=== PATIENT | male | born 1935 | race Caucasian/White ===

== ENCOUNTER 2019-12-24 17:34 | Emergency (ER) | payer MEDICARE, OTHER ==
--- NOTE | 2019-12-24 18:17 | EDM.PDOC ---
ED HPI GENERAL MEDICAL PROBLEM - General Chief Complaint: General Stated Complaint: MEDICAL VIA [facility]TH Time Seen by Provider: 12/24/19 18:01 Source of Information: Reports: Patient, Family, RN Notes Reviewed History Limitations: Reports: No Limitations - History of Present Illness INITIAL COMMENTS - FREE TEXT/NARRATIVE: 84-year-old gentleman presents emergency department today via EMS services. He is an assisted living resident was having dinner started experiencing an event where the room was spinning event lasted about 5 minutes he is now asymptomatic at this time. He is had events similar to this in the past but never lasting this long. He was seated at the time - Related Data Allergies Allergy/AdvReac Type Severity Reaction Status Date / Time heparin Allergy Other Verified 12/24/19 17:44 Home Meds: Home Meds . 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 - Past Surgical History Cardiovascular Surgical History: Reports: Aneurysm, Carotid Stents GI Surgical History: Reports: Bariatric Procedure, Other (See Below) Other GI Surgeries/Procedures: RNY Social & Family History - Tobacco Use Smoking Status *Q: Never Smoker - Caffeine Use Caffeine Use: Reports: Coffee, Soda - Recreational Drug Use Recreational Drug Use: No ED ROS GENERAL - Review of Systems Review Of Systems: See Below Constitutional: Reports: No Symptoms HEENT: Reports: Vertigo Respiratory: Reports: No Symptoms Cardiovascular: Reports: No Symptoms GI/Abdominal: Reports: No Symptoms ED EXAM, GENERAL - Physical Exam Exam: See Below Free Text/Narrative:: Head impulse test: Negative loss of fixation with corrective saccades when head turned to the bilateral Nystagmus: unidirectional, horizontal 0-beating nystagmus Skew deviation: grossly absent Exam Limited By: No Limitations General Appearance: Alert, WD/WN, No Apparent Distress Eye Exam: Bilateral Eye: EOMI, Normal Inspection, PERRL Ears: Normal External Exam, Normal Canal, Hearing Grossly Normal, Normal TMs Nose: Normal Inspection, Normal Mucosa, No Blood Throat/Mouth: Normal Inspection, Normal Lips, Normal Teeth, Normal Gums, Normal Oropharynx, Normal Voice, No Airway Compromise Head: Atraumatic, Normocephalic Neck: Normal Inspection, Supple, Non-Tender, Full Range of Motion Respiratory/Chest: No Respiratory Distress, Lungs Clear, Normal Breath Sounds, No Accessory Muscle Use, Chest Non-Tender Cardiovascular: Regular Rate, Rhythm, No Murmur GI/Abdominal: Soft, Non-Tender Back Exam: Normal Inspection, Full Range of Motion. No: CVA Tenderness (R), CVA Tenderness (L) Extremities: Normal Inspection, Normal Range of Motion, Non-Tender, No Pedal Edema Neurological: Oriented, CN II-XII Intact, Normal Cognition, Normal Gait, Normal Reflexes, No Motor/Sensory Deficits Course - Vital Signs Last Recorded V/S: Last Vital Signs Temp 97.0 F 12/24/19 17:43 Pulse 68 12/24/19 17:43 Resp 16 12/24/19 17:43 BP 115/69 12/24/19 17:43 Pulse Ox 99 12/24/19 17:43 Departure - Departure Time of Disposition: 18:17 Disposition: Home, Self-Care 01 Condition: Fair Clinical Impression: Vertigo - Discharge Information Instructions: Vertigo, [id number] Referrals: PCP,None [Primary Care Provider] - Additional Instructions: Continue with your regular medications, please followup with your primary care provider in 3-5 days if not better, please call return to the emergency department with worsening of symptoms. Sepsis Event Note - Evaluation Sepsis Screening Result: No Definite Risk - Focused Exam Vital Signs: Vital Signs Temp Pulse Resp BP Pulse Ox 12/24/19 17:43 97.0 F 68 16 115/69 99 12/24/19 17:34 97.0 F 68 16 11569 99 Date Exam was Performed: 12/24/19 Time Exam was Performed: 18:14 - Assessment/Plan Plan: Assessment Acuity = acute Site and laterality = vertigo Etiology = unknown Manifestations = none all symptoms resolved Location of injury = Home Lab values = none Plan Elected to do watchful waiting at this time, follow-up primary care 3 to 5 days if not better This note was dictated using [employer] voice recognition software please call with any questions on syntax or grammar.
== END 2019-12-24 18:23 | disposition home or self-care (01) ==
LOC: JP.ED 17:34
DX: R42 Dizziness and giddiness (principal); I10 Essential (primary) hypertension; K21.9 Gastro-esophageal reflux disease without esophagitis; Z88.5 Allergy status to narcotic agent; Z79.899 Other long term (current) drug therapy
CPT/HCPCS: 99284

== ENCOUNTER 2020-05-08 02:08 | Inpatient (IN) | payer MEDICARE ==
[2020-05-08] MEDS ORDERED: Acetaminophen 325 MG Tab PO ONE (02:24)
[2020-05-08] MEDS ORDERED: Ondansetron 4 MG/2 ML SDV IVPUSH ONE (02:24)
--- NOTE | 2020-05-08 02:58 | EDM.PDOC ---
ED HPI GENERAL MEDICAL PROBLEM - General Chief Complaint: Fever Stated Complaint: MEDICAL VIA NORTH Time Seen by Provider: 05/08/20 02:47 Source of Information: Reports: Patient, RN Notes Reviewed History Limitations: Reports: No Limitations - History of Present Illness INITIAL COMMENTS - FREE TEXT/NARRATIVE: 84-year-old gentleman presents emergency department today complaint of nausea vomiting diarrhea fever he has been ill for about 24 hours he is a resident in [facility] tested for COVID last week which was negative tested for COVID yesterday he does not know the results. He denies any other symptoms shortness of breath chest pain abdominal pain - Related Data Allergies Allergy/AdvReac Type Severity Reaction Status Date / Time heparin Allergy Other Verified 05/08/20 02:16 Home Meds: Home Meds Acyclovir 1 tab PO DAILY 05/08/20 [History] Apixaban [Eliquis] 1 tab PO BID 05/08/20 [History] Metoprolol Tartrate [Lopressor] 1 tab PO BID 05/08/20 [History] amLODIPine Besylate [Amlodipine Besylate] 1 tab PO DAILY 05/08/20 [History] atorvaSTATin [Lipitor] 1 tab PO DAILY 05/08/20 [History] Past Medical History HEENT History: Reports: Impaired Vision, Macular Degeneration Cardiovascular History: Reports: Afib, Aneurysm, Hypertension Other Cardiovascular History: Arotic aneurysm rupture Gastrointestinal History: Reports: GERD, Helicobacter Pylori Other Gastrointestinal History: Pancreatitis Oncologic (Cancer) History: Reports: Other (See Below) Other Oncologic History: 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 - Infectious Disease History Infectious Disease History: Reports: Chicken Pox, Measles, Mumps - Past Surgical History HEENT Surgical History: Reports: Adenoidectomy, Cataract Surgery, Tonsillectomy Cardiovascular Surgical History: Reports: Aneurysm, Carotid Stents GI Surgical History: Reports: Bariatric Procedure, Other (See Below) Other GI Surgeries/Procedures: RNY Social & Family History - Family History Family Medical History: Noncontributory - Tobacco Use Smoking Status *Q: Never Smoker - Caffeine Use Caffeine Use: Reports: None - Recreational Drug Use Recreational Drug Use: No ED ROS GENERAL - Review of Systems Review Of Systems: See Below Constitutional: Reports: Fever, Chills, Weakness HEENT: Reports: No Symptoms Respiratory: Reports: No Symptoms Cardiovascular: Reports: No Symptoms GI/Abdominal: Reports: Diarrhea, Nausea, Vomiting. Denies: Abdominal Pain : Reports: No Symptoms Musculoskeletal: Reports: No Symptoms Skin: Reports: No Symptoms Neurological: Reports: No Symptoms ED EXAM, SEPSIS - Physical Exam Exam: See Below Exam Limited By: No Limitations General Appearance: Alert, WD/WN, No Apparent Distress Ears: Normal External Exam, Normal Canal, Hearing Grossly Normal, Normal TMs Nose: Normal Inspection, Normal Mucosa, No Blood Throat/Mouth: Normal Inspection, Normal Lips, Normal Teeth, Normal Gums, Normal Oropharynx, Normal Voice, No Airway Compromise Head: Atraumatic, Normocephalic Neck: Normal Inspection Respiratory/Chest: No Respiratory Distress, Lungs Clear, Normal Breath Sounds, No Accessory Muscle Use, Chest Non-Tender Cardiovascular: No Murmur, Tachycardia GI/Abdominal Exam: Soft, Non-Tender Back: No: CVA Tenderness (R), CVA Tenderness (L) Extremities: No Pedal Edema Skin: Warm, Dry Course - Vital Signs Last Recorded V/S: Last Vital Signs Temp 101.7 F H 05/08/20 04:50 Pulse 116 H 05/08/20 04:50 Resp 29 H 05/08/20 04:50 BP 102/60 05/08/20 04:50 Pulse Ox 94 L 05/08/20 04:50 - Orders/Labs/Meds Orders: Active Orders 24 hr Category Date Time Status Chest 1V Frontal [CR] Stat Exams 05/08/20 02:53 Taken CULTURE BLOOD [BC] Urgent Lab 05/08/20 02:45 Received CULTURE BLOOD [BC] Urgent Lab 05/08/20 03:00 Received CULTURE URINE [RM] Urgent Lab 05/08/20 04:47 Ordered REFLEX LACTIC ACID YES OR NO [CHEM] Routine Lab 05/08/20 03:36 Received Lactated Ringers [Ringers, Lactated] 1,000 ml Med 05/08/20 03:00 Active IV ASDIRECTED cefTRIAXone [Rocephin] 2 gm Med 05/08/20 04:47 Ordered Sodium Chloride 0.9% [Normal Saline] 50 ml IV ONETIME Blood Culture x2 Reflex Set [OM.PC] Urgent Oth 05/08/20 02:53 Ordered Severe Sepsis Onset Time [OM.PC] Stat Oth 05/08/20 02:53 Ordered Medication Orders Lactated Ringer's (Ringers, Lactated) 1,000 mls @ 999 mls/hr IV ASDIRECTED ANDREA Last Admin: 05/08/20 02:59 Dose: 999 mls/hr Ceftriaxone Sodium 2 gm/ (Sodium Chloride) 50 mls @ 100 mls/hr IV ONETIME ONE Stop: 05/08/20 05:16 Labs: Laboratory Tests 05/08/20 05/08/20 05/08/20 Range/Units 02:45 02:45 02:45 WBC 6.7 (4.5-11.0) K/uL RBC 4.10 L (4.30-5.90) M/uL Hgb 12.3 (12.0-15.0) g/dL Hct 39.7 L (40.0-54.0) % MCV 97 (80-98) fL MCH 30 (27-31) pg MCHC 31 L (32-36) % Plt Count 114 L (150-400) K/uL Add Manual Diff Yes Neutrophils % (Manual) 70 H (36-66) % Band Neutrophils % 23 H (5-11) % Lymphocytes % (Manual) 6 L (24-44) % Monocytes % (Manual) 1 L (2-6) % Sodium 142 (140-148) mmol/L Potassium 4.1 (3.6-5.2) mmol/L Chloride 107 (100-108) mmol/L Carbon Dioxide 13 L (21-32) mmol/L Anion Gap 26.1 H (5.0-14.0) mmol/L BUN 40 H (7-18) mg/dL Creatinine 2.6 H (0.8-1.3) mg/dL Est Cr Clr Drug Dosing 22.23 mL/min Estimated GFR (MDRD) 24 L (>60) Glucose 128 H (74-106) mg/dL Lactic Acid 6.1 H (0.4-2.0) mmol/L Calcium 9.0 (8.5-10.1) mg/dL Total Bilirubin 1.7 H (0.2-1.0) mg/dL AST 61 H (15-37) U/L ALT 62 (12-78) U/L Alkaline Phosphatase 226 H (46-116) U/L Troponin I 0.026 (0.000-0.056) ng/mL C-Reactive Protein 4.21 H (0.0-0.3) mg/dL Total Protein 6.3 L (6.4-8.2) g/dL Albumin 3.4 (3.4-5.0) g/dL Globulin 2.9 (2.3-3.5) g/dL Albumin/Globulin Ratio 1.2 (1.2-2.2) Lipase 85 (73-393) U/L Procalcitonin ng/mL Urine Color (YELLOW) Urine Appearance (CLEAR) Urine pH (5.0-8.0) Ur Specific [place] (1.008-1.030) Urine Protein (NEGATIVE) mg/dL Urine Glucose (UA) (NEGATIVE) mg/dL Urine Ketones (NEGATIVE) mg/dL Urine Occult Blood (NEGATIVE) Urine Nitrite (NEGATIVE) Urine Bilirubin (NEGATIVE) Urine Urobilinogen (0.2-1.0) EU/dL Ur Leukocyte Esterase (NEGATIVE) Urine RBC (0-5) Urine WBC (0-5) Ur Epithelial Cells Amorphous Sediment Urine Bacteria Urine Mucus 05/08/20 05/08/20 Range/Units 02:45 03:56 WBC (4.5-11.0) K/uL RBC (4.30-5.90) M/uL Hgb (12.0-15.0) g/dL Hct (40.0-54.0) % MCV (80-98) fL MCH (27-31) pg MCHC (32-36) % Plt Count (150-400) K/uL Add Manual Diff Neutrophils % (Manual) (36-66) % Band Neutrophils % (5-11) % Lymphocytes % (Manual) (24-44) % Monocytes % (Manual) (2-6) % Sodium (140-148) mmol/L Potassium (3.6-5.2) mmol/L Chloride (100-108) mmol/L Carbon Dioxide (21-32) mmol/L Anion Gap (5.0-14.0) mmol/L BUN (7-18) mg/dL Creatinine (0.8-1.3) mg/dL Est Cr Clr Drug Dosing mL/min Estimated GFR (MDRD) (>60) Glucose (74-106) mg/dL Lactic Acid (0.4-2.0) mmol/L Calcium (8.5-10.1) mg/dL Total Bilirubin (0.2-1.0) mg/dL AST (15-37) U/L ALT (12-78) U/L Alkaline Phosphatase (46-116) U/L Troponin I (0.000-0.056) ng/mL C-Reactive Protein (0.0-0.3) mg/dL Total Protein (6.4-8.2) g/dL Albumin (3.4-5.0) g/dL Globulin (2.3-3.5) g/dL Albumin/Globulin Ratio (1.2-2.2) Lipase (73-393) U/L Procalcitonin 35.63 H* ng/mL Urine Color Red A (YELLOW) Urine Appearance Cloudy A (CLEAR) Urine pH 5.0 (5.0-8.0) Ur Specific [place] 1.015 (1.008-1.030) Urine Protein >=300 H (NEGATIVE) mg/dL Urine Glucose (UA) Negative (NEGATIVE) mg/dL Urine Ketones Trace H (NEGATIVE) mg/dL Urine Occult Blood Large H (NEGATIVE) Urine Nitrite Positive H (NEGATIVE) Urine Bilirubin Moderate H (NEGATIVE) Urine Urobilinogen 1.0 (0.2-1.0) EU/dL Ur Leukocyte Esterase Large H (NEGATIVE) Urine RBC Packed H (0-5) Urine WBC Packed H (0-5) Ur Epithelial Cells Not seen Amorphous Sediment Numerous Urine Bacteria Not seen Urine Mucus Not seen Meds: Medications Generic Name Dose Route Start Last Admin Trade Name Mason PRN Reason Stop Dose Admin Lactated Ringer's 1,000 mls @ 999 mls/hr 05/08/20 03:00 05/08/20 02:59 Ringers, Lactated IV 999 mls/hr ASDIRECTED ANDREA Administration Ceftriaxone Sodium 2 gm/ 50 mls @ 100 mls/hr 05/08/20 04:47 Sodium Chloride IV 05/08/20 05:16 ONETIME ONE Discontinued Medications Generic Name Dose Route Start Last Admin Trade Name Freq PRN Reason Stop Dose Admin Acetaminophen 650 mg 05/08/20 02:24 05/08/20 02:33 Tylenol PO 05/08/20 02:25 650 mg NOW ONE Administration Ondansetron HCl 4 mg 05/08/20 02:24 05/08/20 02:33 Zofran IVPUSH 05/08/20 02:25 4 mg ONETIME ONE Administration Departure - Departure Time of Disposition: 05:02 Disposition: Admitted As Inpatient 67 Condition: Fair Clinical Impression: Sepsis Qualifiers: Sepsis type: sepsis due to unspecified organism Sepsis acute organ dysfunction status: with acute organ dysfunction Severe sepsis acute organ dysfunction type : acute renal failure Acute renal failure type: unspecified Severe sepsis shock status: without septic shock Qualified Code(s): A41.9 - Sepsis, unspecified organism; R65.20 - Severe sepsis without septic shock; N17.9 - Acute kidney failure, unspecified - Discharge Information Referrals: PCP,None [Primary Care Provider] - Forms: ED Department Discharge Sepsis Event Note (ED) - Evaluation Sepsis Screening Result: Possible Severe Sepsis Risk - Focused Exam Vital Signs: Vital Signs Temp Temp Pulse Resp BP Pulse Ox 05/08/20 04:50 101.7 F H 116 H 29 H 102/60 94 L 05/08/20 03:27 103.3 F H 117 H 31 H 94/55 L 94 L 05/08/20 03:03 101.7 F H 05/08/20 02:33 103.9 F H 05/08/20 02:21 103.9 F H 132 H 30 H 141/65 H 95 - My Orders Last 24 Hours: My Active Orders 05/08/20 02:45 CULTURE BLOOD [BC] Urgent 05/08/20 02:53 Chest 1V Frontal [CR] Stat Blood Culture x2 Reflex Set [OM.PC] Urgent Severe Sepsis Onset Time [OM.PC] Stat 05/08/20 03:00 CULTURE BLOOD [BC] Urgent Lactated Ringers [Ringers, Lactated] 1,000 ml IV ASDIRECTED 05/08/20 03:36 REFLEX LACTIC ACID YES OR NO [CHEM] Routine 05/08/20 04:47 CULTURE URINE [RM] Urgent cefTRIAXone [Rocephin] 2 gm Sodium Chloride 0.9% [Normal Saline] 50 ml IV ONETIME - Assessment/Plan Last 24 Hours: My Active Orders 05/08/20 02:45 CULTURE BLOOD [BC] Urgent 05/08/20 02:53 Chest 1V Frontal [CR] Stat Blood Culture x2 Reflex Set [OM.PC] Urgent Severe Sepsis Onset Time [OM.PC] Stat 05/08/20 03:00 CULTURE BLOOD [BC] Urgent Lactated Ringers [Ringers, Lactated] 1,000 ml IV ASDIRECTED 05/08/20 03:36 REFLEX LACTIC ACID YES OR NO [CHEM] Routine 05/08/20 04:47 CULTURE URINE [RM] Urgent cefTRIAXone [Rocephin] 2 gm Sodium Chloride 0.9% [Normal Saline] 50 ml IV ONETIME Plan: Assessment Acuity = acute Site and laterality = sepsis secondary to urinary tract infection Etiology = probable bacterial cause Manifestations = fever, tachycardia, hypotensive Location of injury = Home Lab values = CBC unremarkable creatinine elevated 2.6 consistent with acute renal failure stage G4 lactic acid elevated 6.1 consistent with lactic acidosis total bilirubin elevated 1.7 consistent hyperbilirubinemia AST elevated 61 consistent with elevated liver enzymes CRP elevated 421 procalcitonin elevated 35.6 urinalysis packed red blood cells packed white blood cells positive nitrates consistent with hematuria and pyuria respectively chest x-ray I did review films myself I cannot appreciate any acute process, the official read from radiology is pending Plan Call discussed case hospitalist on-call for 50 currently agreed to come evaluate patient emergency department for admission thus far he is received a liter and half of fluids, 1 g Rocephin urine culture and blood culture pending This note was dictated using [employer] voice recognition software please call with any questions on syntax or grammar.
[2020-05-08] MEDS: Lactated Ringers 1,000 ML IV SCH ×2 (02:59→04:00)
[2020-05-08] MEDS ORDERED: Lactated Ringers 1,000 ML IV SCH ×2 (04:00→14:30)
[2020-05-08] MEDS ORDERED: cefTRIAXone 2 GM in Sodium Chloride 0.9% 50 ML IV ONE (04:47)
[2020-05-08] MEDS ORDERED: Sodium Chloride 0.9% 10 ML Syringe FLUSH PRN (05:02)
[2020-05-08] MEDS ORDERED: Acetaminophen 325 MG Tab PO PRN (05:32)
[2020-05-08] MEDS ORDERED: Docusate Sodium 100 MG Cap PO PRN (05:32)
--- NOTE | 2020-05-08 05:50 | PCM.HP.2 ---
H&P History of Present Illness - General Date of Service: 05/08/20 Admit Problem/Dx: Admission Diagnosis/Problem Admission Diagnosis/Problem Urosepsis Source of Information: Patient, Family, Provider, RN History Limitations: Reports: No Limitations - History of Present Illness Initial Comments - Free Text/Narative: Chief complaint: fever - History of Present Illness INITIAL COMMENTS - FREE TEXT/NARRATIVE: 84-year-old gentleman presents emergency department today complaint of nausea vomiting diarrhea fever he has been ill for about 24 hours he is a resident in assisted living center tested for COVID last week which was negative tested for COVID yesterday he does not know the results. He denies any other symptoms shortness of breath chest pain abdominal pain Onset of Symptoms: Reports: Gradual Symptom Onset Date: 05/07/20 Duration of Symptoms: Reports: Day(s): (two) Location: Reports: Generalized (fever and chills) Quality: Reports: Other (weakness) Severity: Severe Improves with: Reports: None Worsens with: Reports: None Context: Reports: Other Associated Symptoms: Reports: Fever/Chills, Loss of Appetite, Nausea/Vomiting, Weakness - Related Data Allergies/Adverse Reactions: Allergies Allergy/AdvReac Type Severity Reaction Status Date / Time heparin Allergy Other Verified 05/08/20 02:16 Home Medications: Home Meds Acyclovir 1 tab PO DAILY 05/08/20 [History] Apixaban [Eliquis] 1 tab PO BID 05/08/20 [History] Metoprolol Tartrate [Lopressor] 1 tab PO BID 05/08/20 [History] amLODIPine Besylate [Amlodipine Besylate] 1 tab PO DAILY 05/08/20 [History] atorvaSTATin [Lipitor] 1 tab PO DAILY 05/08/20 [History] Past Medical History HEENT History: Reports: Impaired Vision, Macular Degeneration Cardiovascular History: Reports: Afib, Aneurysm, Hypertension Other Cardiovascular History: Arotic aneurysm rupture Gastrointestinal History: Reports: GERD, Helicobacter Pylori Other Gastrointestinal History: Pancreatitis Oncologic (Cancer) History: Reports: Other (See Below) Other Oncologic History: 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 - Infectious Disease History Infectious Disease History: Reports: Chicken Pox, Measles, Mumps - Past Surgical History HEENT Surgical History: Reports: Adenoidectomy, Cataract Surgery, Tonsillectomy Cardiovascular Surgical History: Reports: Aneurysm, Carotid Stents GI Surgical History: Reports: Bariatric Procedure, Other (See Below) Other GI Surgeries/Procedures: RNY Social & Family History - Family History Family Medical History: Noncontributory - Tobacco Use Smoking Status *Q: Never Smoker - Caffeine Use Caffeine Use: Reports: None - Recreational Drug Use Recreational Drug Use: No - Living Situation & Occupation Living situation: Reports: , Assisted Living Occupation: Retired (lives with his , since 1973, 3 children 2 son 1 daughter of ovarian cancer. 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[employer]) H&P Review of Systems - Review of Systems: Review Of Systems: See Below General: Reports: ROS unobtainable, Fever, Chills, Malaise, Weakness, Fatigue, Decreased Appetite HEENT: Reports: Visual Changes (history of macula degeneration) Pulmonary: Reports: No Symptoms Cardiovascular: Reports: No Symptoms Gastrointestinal: Reports: No Symptoms Genitourinary: Reports: No Symptoms Musculoskeletal: Reports: No Symptoms Skin: Reports: No Symptoms Psychiatric: Reports: No Symptoms Neurological: Reports: Weakness Hematologic/Lymphatic: Reports: Easy Bleeding (anticoagulation for A-Fib) Immunologic: Reports: No Symptoms Exam - Exam Exam: See Below - Vital Signs Vital Signs: Last Vital Signs Temp 38.7 C H 05/08/20 04:50 Pulse 116 H 05/08/20 04:50 Resp 29 H 05/08/20 04:50 BP 102/60 05/08/20 04:50 Pulse Ox 94 L 05/08/20 04:50 Weight: 81.647 kg - Exam General: Cooperative, Lethargic HEENT: PERRLA Neck: Supple, Trachea Midline Lungs: Clear to Auscultation, Normal Respiratory Effort, Wheezing Cardiovascular: Regular Rate, Regular Rhythm, Normal S1, Normal S2 GI/Abdominal Exam: Normal Bowel Sounds, Soft, Non-Tender, No Organomegaly, No Distention, No Abnormal Bruit, No Mass, Pelvis Stable (Male) Exam: Circumcised Rectal (Males) Exam: Deferred Back Exam: Normal Inspection, Full Range of Motion Extremities: Normal Inspection, Normal Range of Motion, Non-Tender, No Pedal Edema, Normal Capillary Refill Skin: Warm, Dry, Intact Psychiatric: Other (lethergy) - Patient Data Lab Results Last 24 hrs: Laboratory Results - last 24 hr 05/08/20 05/08/20 05/08/20 Range/Units 02:45 02:45 02:45 WBC 6.7 (4.5-11.0) K/uL RBC 4.10 L (4.30-5.90) M/uL Hgb 12.3 (12.0-15.0) g/dL Hct 39.7 L (40.0-54.0) % MCV 97 (80-98) fL MCH 30 (27-31) pg MCHC 31 L (32-36) % Plt Count 114 L (150-400) K/uL Add Manual Diff Yes Neutrophils % (Manual) 70 H (36-66) % Band Neutrophils % 23 H (5-11) % Lymphocytes % (Manual) 6 L (24-44) % Monocytes % (Manual) 1 L (2-6) % Sodium 142 (140-148) mmol/L Potassium 4.1 (3.6-5.2) mmol/L Chloride 107 (100-108) mmol/L Carbon Dioxide 13 L (21-32) mmol/L Anion Gap 26.1 H (5.0-14.0) mmol/L BUN 40 H (7-18) mg/dL Creatinine 2.6 H (0.8-1.3) mg/dL Est Cr Clr Drug Dosing 22.23 mL/min Estimated GFR (MDRD) 24 L (>60) Glucose 128 H (74-106) mg/dL Lactic Acid 6.1 H (0.4-2.0) mmol/L Calcium 9.0 (8.5-10.1) mg/dL Total Bilirubin 1.7 H (0.2-1.0) mg/dL AST 61 H (15-37) U/L ALT 62 (12-78) U/L Alkaline Phosphatase 226 H (46-116) U/L Troponin I 0.026 (0.000-0.056) ng/mL C-Reactive Protein 4.21 H (0.0-0.3) mg/dL Total Protein 6.3 L (6.4-8.2) g/dL Albumin 3.4 (3.4-5.0) g/dL Globulin 2.9 (2.3-3.5) g/dL Albumin/Globulin Ratio 1.2 (1.2-2.2) Lipase 85 (73-393) U/L Procalcitonin ng/mL Urine Color (YELLOW) Urine Appearance (CLEAR) Urine pH (5.0-8.0) Ur Specific Dingle (1.008-1.030) Urine Protein (NEGATIVE) mg/dL Urine Glucose (UA) (NEGATIVE) mg/dL Urine Ketones (NEGATIVE) mg/dL Urine Occult Blood (NEGATIVE) Urine Nitrite (NEGATIVE) Urine Bilirubin (NEGATIVE) Urine Urobilinogen (0.2-1.0) EU/dL Ur Leukocyte Esterase (NEGATIVE) Urine RBC (0-5) Urine WBC (0-5) Ur Epithelial Cells Amorphous Sediment Urine Bacteria Urine Mucus 05/08/20 05/08/20 Range/Units 02:45 03:56 WBC (4.5-11.0) K/uL RBC (4.30-5.90) M/uL Hgb (12.0-15.0) g/dL Hct (40.0-54.0) % MCV (80-98) fL MCH (27-31) pg MCHC (32-36) % Plt Count (150-400) K/uL Add Manual Diff Neutrophils % (Manual) (36-66) % Band Neutrophils % (5-11) % Lymphocytes % (Manual) (24-44) % Monocytes % (Manual) (2-6) % Sodium (140-148) mmol/L Potassium (3.6-5.2) mmol/L Chloride (100-108) mmol/L Carbon Dioxide (21-32) mmol/L Anion Gap (5.0-14.0) mmol/L BUN (7-18) mg/dL Creatinine (0.8-1.3) mg/dL Est Cr Clr Drug Dosing mL/min Estimated GFR (MDRD) (>60) Glucose (74-106) mg/dL Lactic Acid (0.4-2.0) mmol/L Calcium (8.5-10.1) mg/dL Total Bilirubin (0.2-1.0) mg/dL AST (15-37) U/L ALT (12-78) U/L Alkaline Phosphatase (46-116) U/L Troponin I (0.000-0.056) ng/mL C-Reactive Protein (0.0-0.3) mg/dL Total Protein (6.4-8.2) g/dL Albumin (3.4-5.0) g/dL Globulin (2.3-3.5) g/dL Albumin/Globulin Ratio (1.2-2.2) Lipase (73-393) U/L Procalcitonin 35.63 H* ng/mL Urine Color Red A (YELLOW) Urine Appearance Cloudy A (CLEAR) Urine pH 5.0 (5.0-8.0) Ur Specific Dingle 1.015 (1.008-1.030) Urine Protein >=300 H (NEGATIVE) mg/dL Urine Glucose (UA) Negative (NEGATIVE) mg/dL Urine Ketones Trace H (NEGATIVE) mg/dL Urine Occult Blood Large H (NEGATIVE) Urine Nitrite Positive H (NEGATIVE) Urine Bilirubin Moderate H (NEGATIVE) Urine Urobilinogen 1.0 (0.2-1.0) EU/dL Ur Leukocyte Esterase Large H (NEGATIVE) Urine RBC Packed H (0-5) Urine WBC Packed H (0-5) Ur Epithelial Cells Not seen Amorphous Sediment Numerous Urine Bacteria Not seen Urine Mucus Not seen Result Diagrams: 05/08/20 02:45 05/08/20 02:45 Sepsis Event Note - Evaluation Sepsis Screening Result: Possible Severe Sepsis Risk - Focused Exam Vital Signs: Vital Signs Temp Temp Pulse Resp BP Pulse Ox 05/08/20 04:50 38.7 C H 116 H 29 H 102/60 94 L 05/08/20 03:27 39.6 C H 117 H 31 H 94/55 L 94 L 05/08/20 03:03 38.7 C H 05/08/20 02:33 39.9 C H 05/08/20 02:21 39.9 C H 132 H 30 H 141/65 H 95 Date Exam was Performed: 05/08/20 Time Exam was Performed: 06:21 - Problem List (1) Sepsis SNOMED Code(s): 79787474 ICD Code: A41.9 - SEPSIS, UNSPECIFIED ORGANISM Status: Acute Priority: High Current Visit: Yes Qualifiers: Sepsis type: sepsis due to unspecified organism Sepsis acute organ dysfunction status: with acute organ dysfunction Acute renal failure type: unspecified Severe sepsis shock status: without septic shock (2) A-fib SNOMED Code(s): 19923944 ICD Code: I48.91 - UNSPECIFIED ATRIAL FIBRILLATION Status: Acute Priority : Low Current Visit: Yes Qualifiers: Atrial fibrillation type: unspecified Qualified Code(s): I48.91 - Unspecified atrial fibrillation (3) Urinary tract infection SNOMED Code(s): 22691069 ICD Code: N39.0 - URINARY TRACT INFECTION, SITE NOT SPECIFIED Status: Acute Priority: High Current Visit: Yes Qualifiers: Hematuria presence: with hematuria Problem List Initiated/Reviewed/Updated: Yes Orders Last 24hrs: Active Orders 24 hr Category Date Time Status Patient Status Manage Transfer [TRANSFER] Routine ADT 05/08/20 05:31 Active Intake and Output [RC] PER UNIT ROUTINE Care 05/08/20 05:34 Active Notify Provider Intake and Out [RC] ASDIRECTED Care 05/08/20 05:32 Active Notify Provider Vital Signs [RC] ASDIRECTED Care 05/08/20 05:35 Active Oxygen Therapy [RC] PRN Care 05/08/20 05:33 Active Peripheral IV Care [RC] . DIRECTED Care 05/08/20 05:02 Active Pulse Oximetry [RC] PRN Care 05/08/20 05:34 Active Up With Assistance [RC] ASDIRECTED Care 05/08/20 05:32 Active Vital Signs [RC] Q2H Care 05/08/20 05:32 Active Heart Healthy Diet [DIET] Diet 05/08/20 Breakfast Active Chest 1V Frontal [CR] Stat Exams 05/08/20 02:53 Taken CULTURE BLOOD [BC] Urgent Lab 05/08/20 02:45 Received CULTURE BLOOD [BC] Urgent Lab 05/08/20 03:00 Received CULTURE URINE [RM] Urgent Lab 05/08/20 04:47 Received LACTIC ACID [CHEM] Routine Lab 05/08/20 06:45 Ordered PROCALCITONIN [CHEM] Urgent Lab 05/08/20 08:45 Ordered REFLEX LACTIC ACID YES OR NO [CHEM] Routine Lab 05/08/20 03:36 Received Acetaminophen [Tylenol] Med 05/08/20 05:32 Ordered 650 mg PO Q4H PRN Acyclovir [Acyclovir] Med 05/08/20 09:00 Ordered 1 tab PO DAILY Apixaban [Eliquis] Med 05/08/20 09:00 Ordered 2.5 mg PO BID Docusate Sodium [Colace] Med 05/08/20 05:32 Ordered 100 mg PO DAILY PRN Lactated Ringers [Ringers, Lactated] 1,000 ml Med 05/08/20 03:00 Active IV ASDIRECTED Lactated Ringers [Ringers, Lactated] 1,000 ml Med 05/08/20 04:00 Active IV ASDIRECTED Meropenem [Merrem] 1 gm Med 05/08/20 05:45 Ordered Sodium Chloride 0.9% [Normal Saline] 100 ml IV Q8H Metoprolol Tartrate [Lopressor] Med 05/08/20 09:00 Ordered 50 mg PO BID Sodium Chloride 0.9% [Normal Saline] 1,000 ml Med 05/08/20 05:45 Ordered IV ASDIRECTED Sodium Chloride 0.9% [Saline Flush] Med 05/08/20 05:02 Active 10 ml FLUSH ASDIRECTED PRN amLODIPine [Norvasc] Med 05/08/20 09:00 Ordered 5 mg PO DAILY atorvaSTATin [Lipitor] Med 05/08/20 09:00 Ordered 20 mg PO DAILY Blood Culture x2 Reflex Set [OM.PC] Urgent Oth 05/08/20 02:53 Ordered Peripheral IV Insertion Adult [OM.PC] Urgent Oth 05/08/20 05:02 Ordered Severe Sepsis Onset Time [OM.PC] Stat Ot 05/08/20 02:53 Ordered Resuscitation Status Routine Resus Stat 05/08/20 05:32 Ordered Medication Orders Acetaminophen (Tylenol) 650 mg PO Q4H PRN PRN Reason: analgesia/fever Amlodipine Besylate (Norvasc) 5 mg PO DAILY [facility] Apixaban (Eliquis) 2.5 mg PO BID [facility] Atorvastatin Calcium (Lipitor) 20 mg PO DAILY [facility] Docusate Sodium (Colace) 100 mg PO DAILY PRN PRN Reason: Constipation Lactated Ringer's (Ringers, Lactated) 1,000 mls @ 999 mls/hr IV ASDIRECTED ANDREA Last Infusion: 05/08/20 04:00 Dose: 999 mls/hr Admin: 05/08/20 02:59 Dose: 999 mls/hr Lactated Ringer's (Ringers, Lactated) 1,000 mls @ 500 mls/hr IV ASDIRECTED ANDREA Stop: 05/08/20 05:59 Last Admin: 05/08/20 04:00 Dose: 500 mls/hr Meropenem 1 gm/ Sodium (Chloride) 100 mls @ 200 mls/hr IV Q8H [facility] Sodium Chloride (Normal Saline) 1,000 mls @ 125 mls/hr IV ASDIRECTED [facility] Metoprolol Tartrate (Lopressor) 50 mg PO BID [facility] Non-Formulary Medication (Acyclovir [Acyclovir]) 1 tab PO DAILY [facility] Sodium Chloride (Saline Flush) 10 ml FLUSH ASDIRECTED PRN PRN Reason: Keep Vein Open Last Admin: 05/08/20 05:17 Dose: 10 ml Assessment/Plan Comment:: ASSESSMENT / PLAN This is a 84 year old male reports two day history of not feeling well. He has had poor appetite and fluids intake with fever and chills. He reports to his yesterday just didn't feel well and today very sick. Mary reports Mahendra has never had a bladder or kidney infections. reports he is healthy except for current illness. Plan: Assessment Acuity = acute Site and laterality = sepsis secondary to urinary tract infection Etiology = probable bacterial cause Manifestations = fever, tachycardia, hypotensive Location of injury = Home Lab values = CBC unremarkable creatinine elevated 2.6 consistent with acute renal failure stage G4 lactic acid elevated 6.1 consistent with lactic acidosis total bilirubin elevated 1.7 consistent hyperbilirubinemia AST elevated 61 consistent with elevated liver enzymes CRP elevated 421 procalcitonin elevated 35.6 urinalysis packed red blood cells packed white blood cells positive nitrates consistent with hematuria and pyuria respectively chest x-ray I did review films myself I cannot appreciate any acute process, the official read from radiology is pending Plan Call discussed case hospitalist on-call at 055 currently agreed to come evaluate patient emergency department for admission thus far he is received a liter and half of fluids, 1 g Rocephin urine culture and blood culture pending SEPSIS secondary to Urinary Tract Infection -Admit to [address] [place] [address] for further monitoring -IV Fluids for rehydration Normal Saline 125 mL per hour -IV Antibiotic Meropenem 1 gram every 8 hours -IV Antibiotic Rocephin 2 grams every 24 hours -Tylenol or Motrin for pain or fever -Advise to notify nurses of any fever or worsen pain -blood cultures x2 pending -urine culture pending -repeat Lactic Acid at 0645 -repeat Procalcitonin at 0845 -And a.m. labs: CBC, BMP A-Fib -continue outpatient medications Maintenance issues -Orders home meds: ordered -Nutrition: health heart diet -Franz catheter not indicated at this time -DVT: Xarelto -PPI; IV Protonix 40mg daily CODE STATUS: FULL Admission status: Admit to [address] [place] [address] Admission justification. This patient will be admitted for inpatient services and is medically appropriate meeting medical necessity for inpatient admission as outlined in my documentation. I reasonably expect the patient will require inpatient services that span. Time over 2 midnights. I reasonably expect this patient to be discharged or transferred within 96 hours after admission to the critical access hospital. Disposition: Assisted living home with Primary care provider: Hospitalist: Dr. Ambriz - Mortality Measure Prognosis:: Good
[2020-05-08] MEDS: Meropenem 1 GM in Sodium Chloride 0.9% 100 ML IV SCH ×2 (07:45→16:33)
[2020-05-08] MEDS ORDERED: amLODIPine 5 MG Tab PO SCH (09:00)
--- NOTE | 2020-05-08 09:10 | CR ---
CHEST: Portable 05/08/2020 at 3:18 AM CLINICAL HISTORY:Fever COMPARISON:None FINDINGS: The heart size, pulmonary vascularity and hilar structures are normal. No infiltrate effusion or pneumothorax is seen. There are atherosclerotic changes in the aorta. There is a stent graft in the descending arch IMPRESSION: No acute cardiopulmonary process.
[2020-05-08] MEDS: Sodium Chloride 0.9% 1,000 ML IV SCH ×2 (09:32→22:01)
[2020-05-08] MEDS: Apixaban 2.5 MG Tab PO SCH ×2 (09:34→21:40)
[2020-05-08] MEDS: Acyclovir 200 MG Cap PO SCH (09:34)
[2020-05-08] MEDS ORDERED: Ibuprofen 400 MG Tab PO PRN (09:42)
[2020-05-08] MEDS: Metoprolol Tartrate 50 MG Tab PO SCH ×2 (10:23→20:10)
[2020-05-08] MEDS: atorvaSTATin 20 MG Tab PO SCH (10:38)
[2020-05-08] MEDS ORDERED: Digoxin 500 MCG/2 ML Amp IVPUSH ONE ×2 (13:00→15:30)
[2020-05-08] MEDS: oxyCODONE 5 MG Tab PO PRN ×3 (13:29→21:39)
--- NOTE | 2020-05-08 14:39 | PCM.PN ---
- General Info Date of Service: 05/08/20 Subjective Update: is an 84-year-old gentleman who was admitted through the emergency department with sepsis secondary to a urinary tract infection and atrial fibrillation with rapid ventricular response. Heart rate control had improved while in the emergency department with IV fluids. After he was admitted to the medical surgical floor heart rate increased and remained elevated. He denies any symptoms of chest pain or pressure, will be transferred to intensive care unit for further management of his atrial fibrillation with RVR. Blood pressures have remained somewhat borderline, with adequate mean arterial pressure. He feels very weak but denies respiratory symptoms or significant abdominal pain/discomfort. - Review of Systems General: Reports: Fever, Weakness, Fatigue, Malaise, Chills Pulmonary: Reports: No Symptoms Cardiovascular: Reports: No Symptoms Gastrointestinal: Reports: No Symptoms Genitourinary: Reports: No Symptoms - Patient Data Vitals - Most Recent: Last Vital Signs Temp 98.6 F 05/08/20 11:58 Pulse 138 H 05/08/20 14:00 Resp 30 H 05/08/20 14:00 BP 101/63 05/08/20 14:00 Pulse Ox 92 L 05/08/20 14:00 Weight - Most Recent: 178 lb I&O - Last 24 Hours: Intake & Output 05/07/20 05/08/20 05/08/20 22:59 06:59 14:59 Intake Total 283 Output Total 50 Balance 233 Lab Results Last 24 Hours: Laboratory Results - last 24 hr 05/08/20 05/08/20 05/08/20 Range/Units 02:45 02:45 02:45 WBC 6.7 (4.5-11.0) K/uL RBC 4.10 L (4.30-5.90) M/uL Hgb 12.3 (12.0-15.0) g/dL Hct 39.7 L (40.0-54.0) % MCV 97 (80-98) fL MCH 30 (27-31) pg MCHC 31 L (32-36) % Plt Count 114 L (150-400) K/uL Add Manual Diff Yes Neutrophils % (Manual) 70 H (36-66) % Band Neutrophils % 23 H (5-11) % Lymphocytes % (Manual) 6 L (24-44) % Monocytes % (Manual) 1 L (2-6) % Sodium 142 (140-148) mmol/L Potassium 4.1 (3.6-5.2) mmol/L Chloride 107 (100-108) mmol/L Carbon Dioxide 13 L (21-32) mmol/L Anion Gap 26.1 H (5.0-14.0) mmol/L BUN 40 H (7-18) mg/dL Creatinine 2.6 H (0.8-1.3) mg/dL Est Cr Clr Drug Dosing 22.23 mL/min Estimated GFR (MDRD) 24 L (>60) Glucose 128 H (74-106) mg/dL Lactic Acid 6.1 H (0.4-2.0) mmol/L Calcium 9.0 (8.5-10.1) mg/dL Total Bilirubin 1.7 H (0.2-1.0) mg/dL AST 61 H (15-37) U/L ALT 62 (12-78) U/L Alkaline Phosphatase 226 H (46-116) U/L Troponin I 0.026 (0.000-0.056) ng/mL C-Reactive Protein 4.21 H (0.0-0.3) mg/dL Total Protein 6.3 L (6.4-8.2) g/dL Albumin 3.4 (3.4-5.0) g/dL Globulin 2.9 (2.3-3.5) g/dL Albumin/Globulin Ratio 1.2 (1.2-2.2) Lipase 85 (73-393) U/L Procalcitonin ng/mL Urine Color (YELLOW) Urine Appearance (CLEAR) Urine pH (5.0-8.0) Ur Specific [place] (1.008-1.030) Urine Protein (NEGATIVE) mg/dL Urine Glucose (UA) (NEGATIVE) mg/dL Urine Ketones (NEGATIVE) mg/dL Urine Occult Blood (NEGATIVE) Urine Nitrite (NEGATIVE) Urine Bilirubin (NEGATIVE) Urine Urobilinogen (0.2-1.0) EU/dL Ur Leukocyte Esterase (NEGATIVE) Urine RBC (0-5) Urine WBC (0-5) Ur Epithelial Cells Amorphous Sediment Urine Bacteria Urine Mucus 05/08/20 05/08/20 05/08/20 Range/Units 02:45 03:56 06:44 WBC (4.5-11.0) K/uL RBC (4.30-5.90) M/uL Hgb (12.0-15.0) g/dL Hct (40.0-54.0) % MCV (80-98) fL MCH (27-31) pg MCHC (32-36) % Plt Count (150-400) K/uL Add Manual Diff Neutrophils % (Manual) (36-66) % Band Neutrophils % (5-11) % Lymphocytes % (Manual) (24-44) % Monocytes % (Manual) (2-6) % Sodium (140-148) mmol/L Potassium (3.6-5.2) mmol/L Chloride (100-108) mmol/L Carbon Dioxide (21-32) mmol/L Anion Gap (5.0-14.0) mmol/L BUN (7-18) mg/dL Creatinine (0.8-1.3) mg/dL Est Cr Clr Drug Dosing mL/min Estimated GFR (MDRD) (>60) Glucose (74-106) mg/dL Lactic Acid 6.6 H (0.4-2.0) mmol/L Calcium (8.5-10.1) mg/dL Total Bilirubin (0.2-1.0) mg/dL AST (15-37) U/L ALT (12-78) U/L Alkaline Phosphatase (46-116) U/L Troponin I (0.000-0.056) ng/mL C-Reactive Protein (0.0-0.3) mg/dL Total Protein (6.4-8.2) g/dL Albumin (3.4-5.0) g/dL Globulin (2.3-3.5) g/dL Albumin/Globulin Ratio (1.2-2.2) Lipase (73-393) U/L Procalcitonin 35.63 H* ng/mL Urine Color Red A (YELLOW) Urine Appearance Cloudy A (CLEAR) Urine pH 5.0 (5.0-8.0) Ur Specific [place] 1.015 (1.008-1.030) Urine Protein >=300 H (NEGATIVE) mg/dL Urine Glucose (UA) Negative (NEGATIVE) mg/dL Urine Ketones Trace H (NEGATIVE) mg/dL Urine Occult Blood Large H (NEGATIVE) Urine Nitrite Positive H (NEGATIVE) Urine Bilirubin Moderate H (NEGATIVE) Urine Urobilinogen 1.0 (0.2-1.0) EU/dL Ur Leukocyte Esterase Large H (NEGATIVE) Urine RBC Packed H (0-5) Urine WBC Packed H (0-5) Ur Epithelial Cells Not seen Amorphous Sediment Numerous Urine Bacteria Not seen Urine Mucus Not seen 05/08/20 Range/Units 09:00 WBC (4.5-11.0) K/uL RBC (4.30-5.90) M/uL Hgb (12.0-15.0) g/dL Hct (40.0-54.0) % MCV (80-98) fL MCH (27-31) pg MCHC (32-36) % Plt Count (150-400) K/uL Add Manual Diff Neutrophils % (Manual) (36-66) % Band Neutrophils % (5-11) % Lymphocytes % (Manual) (24-44) % Monocytes % (Manual) (2-6) % Sodium (140-148) mmol/L Potassium (3.6-5.2) mmol/L Chloride (100-108) mmol/L Carbon Dioxide (21-32) mmol/L Anion Gap (5.0-14.0) mmol/L BUN (7-18) mg/dL Creatinine (0.8-1.3) mg/dL Est Cr Clr Drug Dosing mL/min Estimated GFR (MDRD) (>60) Glucose (74-106) mg/dL Lactic Acid (0.4-2.0) mmol/L Calcium (8.5-10.1) mg/dL Total Bilirubin (0.2-1.0) mg/dL AST (15-37) U/L ALT (12-78) U/L Alkaline Phosphatase (46-116) U/L Troponin I (0.000-0.056) ng/mL C-Reactive Protein (0.0-0.3) mg/dL Total Protein (6.4-8.2) g/dL Albumin (3.4-5.0) g/dL Globulin (2.3-3.5) g/dL Albumin/Globulin Ratio (1.2-2.2) Lipase (73-393) U/L Procalcitonin 89.96 H* ng/mL Urine Color (YELLOW) Urine Appearance (CLEAR) Urine pH (5.0-8.0) Ur Specific [place] (1.008-1.030) Urine Protein (NEGATIVE) mg/dL Urine Glucose (UA) (NEGATIVE) mg/dL Urine Ketones (NEGATIVE) mg/dL Urine Occult Blood (NEGATIVE) Urine Nitrite (NEGATIVE) Urine Bilirubin (NEGATIVE) Urine Urobilinogen (0.2-1.0) EU/dL Ur Leukocyte Esterase (NEGATIVE) Urine RBC (0-5) Urine WBC (0-5) Ur Epithelial Cells Amorphous Sediment Urine Bacteria Urine Mucus Med Orders - Current: Current Medications Acetaminophen (Tylenol) 650 mg PO Q4H PRN PRN Reason: analgesia/fever Acyclovir (Zovirax) 800 mg PO DAILY [facility] Last Admin: 05/08/20 09:34 Dose: 800 mg Apixaban (Eliquis) 2.5 mg PO BID [facility] Last Admin: 05/08/20 09:34 Dose: 2.5 mg Atorvastatin Calcium (Lipitor) 20 mg PO DAILY [facility] Last Admin: 05/08/20 10:38 Dose: 20 mg Docusate Sodium (Colace) 100 mg PO DAILY PRN PRN Reason: Constipation Meropenem 1 gm/ Sodium (Chloride) 100 mls @ 200 mls/hr IV Q8H [facility] Last Admin: 05/08/20 07:45 Dose: 200 mls/hr Sodium Chloride (Normal Saline) 1,000 mls @ 125 mls/hr IV ASDIRECTED [facility] Last Admin: 05/08/20 09:32 Dose: 125 mls/hr Lactated Ringer's (Ringers, Lactated) 1,000 mls @ 500 mls/hr IV ASDIRECTED [facility] Stop: 05/08/20 16:31 Ibuprofen (Motrin) 400 mg PO Q6H PRN PRN Reason: Fever Metoprolol Tartrate (Lopressor) 50 mg PO BID [facility] Last Admin: 05/08/20 10:23 Dose: Not Given Oxycodone HCl (Oxycodone) 5 mg PO Q4H PRN PRN Reason: Pain Last Admin: 05/08/20 13:29 Dose: 5 mg Sodium Chloride (Saline Flush) 10 ml FLUSH ASDIRECTED PRN PRN Reason: Keep Vein Open Last Admin: 05/08/20 05:17 Dose: 10 ml Discontinued Medications Acetaminophen (Tylenol) 650 mg PO NOW ONE Stop: 05/08/20 02:25 Last Admin: 05/08/20 02:33 Dose: 650 mg Amlodipine Besylate (Norvasc) 5 mg PO DAILY [facility] Last Admin: 05/08/20 10:23 Dose: Not Given Digoxin (Lanoxin) 250 mcg IVPUSH ONETIME ONE Stop: 05/08/20 13:01 Last Admin: 05/08/20 13:18 Dose: 250 mcg Lactated Ringer's (Ringers, Lactated) 1,000 mls @ 999 mls/hr IV ASDIRECTED [facility] Last Infusion: 05/08/20 04:00 Dose: Infused Ceftriaxone Sodium 2 gm/ (Sodium Chloride) 50 mls @ 100 mls/hr IV ONETIME ONE Stop: 05/08/20 05:16 Last Admin: 05/08/20 05:16 Dose: 100 mls/hr Lactated Ringer's (Ringers, Lactated) 1,000 mls @ 500 mls/hr IV ASDIRECTED [facility] Stop: 05/08/20 05:59 Last Admin: 05/08/20 04:00 Dose: 500 mls/hr Ondansetron HCl (Zofran) 4 mg IVPUSH ONETIME ONE Stop: 05/08/20 02:25 Last Admin: 05/08/20 02:33 Dose: 4 mg - Exam Quality Assessment: DVT Prophylaxis General: Alert, Oriented, Cooperative, Moderate Distress Lungs: Clear to Auscultation, Normal Respiratory Effort Cardiovascular: No Murmurs, Irregular Rhythm, Tachycardia. No: Bradycardia GI/Abdominal Exam: Soft, Non-Tender, No Organomegaly, No Distention Extremities: Non-Tender, No Pedal Edema Sepsis Event Note - Evaluation Sepsis Screening Result: No Definite Risk - Focused Exam Vital Signs: Vital Signs Temp Temp Pulse Pulse Resp BP Pulse Ox 05/08/20 14:00 138 H 30 H 101/63 92 L 05/08/20 13:18 140 H 05/08/20 13:12 140 H 30 H 93/57 L 93 L 05/08/20 12:18 30 H 100/64 93 L 05/08/20 12:06 29 H 89/56 L 90 L 05/08/20 11:58 98.6 F 30 H 99/58 L 93 L 05/08/20 09:23 94 L 05/08/20 09:12 100.9 F H 104 H 92/56 L 93 L 05/08/20 08:00 99.3 F 26 H 95/57 L 93 L 05/08/20 06:00 100.0 F 102 H 26 H 96/51 L 93 L 05/08/20 04:50 101.7 F H 116 H 29 H 102/60 94 L 05/08/20 03:27 103.3 F H 117 H 31 H 94/55 L 94 L 05/08/20 03:03 101.7 F H Date Exam was Performed: 05/08/20 Time Exam was Performed: 14:34 - Problem List Review Problem List Initiated/Reviewed/Updated: Yes - My Orders Last 24 Hours: My Active Orders 05/08/20 12:21 Patient Status [ADT] Routine 05/08/20 12:23 oxyCODONE 5 mg PO Q4H PRN 05/08/20 14:30 Lactated Ringers [Ringers, Lactated] 1,000 ml IV ASDIRECTED 05/08/20 16:00 LACTIC ACID [CHEM] Stat 05/09/20 05:00 CBC WITH AUTO DIFF [HEME] Timed COMPREHENSIVE METABOLIC PN,CMP [CHEM] Timed DIGOXIN [CHEM] Timed LACTIC ACID [CHEM] Timed MAGNESIUM [CHEM] Timed - Plan Plan:: ASSESSMENT / PLAN SEPSIS secondary to Urinary Tract Infection -IV Fluids for rehydration Normal Saline 125 mL per hour -IV Antibiotic Meropenem 1 gram every 8 hours, and culture result -Tylenol or Motrin for pain or fever -blood cultures x2 pending -urine culture pending A-Fib with rapid ventricular response-elevated in the emergency department, improved with IV fluids, now significantly elevated again -Transfer to ICU for further management -Digoxin 0.25 mg IV, hold on use of diltiazem because of borderline blood pressure -continue oral metoprolol Maintenance issues -Nutrition: health heart diet -Franz catheter not indicated at this time -DVT: Xarelto -PPI; IV Protonix 40mg daily CODE STATUS: FULL Admission status: Admit to [address] [place] [address] Admission justification. This patient will be admitted for inpatient services and is medically appropriate meeting medical necessity for inpatient admission as outlined in my documentation. I reasonably expect the patient will require inpatient services that span. Time over 2 midnights. I reasonably expect this patient to be discharged or transferred within 96 hours after admission to the critical access hospital. Disposition: Assisted living home with Primary care provider: Hospitalist: Dr. Ambriz
[2020-05-08] MEDS ORDERED: Diltiazem 25 MG/5 ML SDV IVPUSH ONE (21:36)
[2020-05-08] MEDS ORDERED: Diltiazem 100 MG in Sodium Chloride 0.9% 100 ML IV SCH (21:45)
[2020-05-09] MEDS: Meropenem 1 GM in Sodium Chloride 0.9% 100 ML IV SCH ×4 (00:19→23:42)
[2020-05-09] MEDS: oxyCODONE 5 MG Tab PO PRN ×4 (01:47→21:36)
[2020-05-09] MEDS: Sodium Chloride 0.9% 1,000 ML IV SCH (06:18)
[2020-05-09] MEDS: Metoprolol Tartrate 50 MG Tab PO SCH (08:01)
[2020-05-09] MEDS: Apixaban 2.5 MG Tab PO SCH ×2 (08:01→21:36)
[2020-05-09] MEDS: atorvaSTATin 20 MG Tab PO SCH (08:01)
[2020-05-09] MEDS: Acyclovir 200 MG Cap PO SCH (08:03)
[2020-05-09] MEDS ORDERED: Vancomycin 1 GM SDV IV SCH (09:00)
--- NOTE | 2020-05-09 09:04 | CR ---
CHEST: Portable 05/09/2020 at 8:50 AM CLINICAL HISTORY:Hypoxia COMPARISON:05/08/2020 FINDINGS: There is less than optimal inspiration. There is an increase in the perihilar lung markings since prior study. There may be a minimal right effusion. Heart size is normal. There is a stent in the descending aorta. IMPRESSION: There is volume loss in the lung bases right greater than left. This may be due to poor inspiratory effort. Bibasal pneumonic infiltrates are not excluded
[2020-05-09] MEDS ORDERED: Levofloxacin/Dextrose 5%-Water 750 MG in Premix Bag 1 BAG IV ONE (10:00)
--- NOTE | 2020-05-09 10:00 | PCM.PN ---
- General Info Date of Service: 05/09/20 Subjective Update: unfortunately continues to experience severe sepsis, complicated by atrial fibrillation with RVR, acute kidney injury, liver enzyme elevation, and respiratory compromise with hypoxia. White blood cell count was markedly elevated today. We have had difficulty controlling his rate with his atrial fibrillation because of borderline blood pressures. He reports feeling symptoms of shortness of breath and profound weakness. Functional Status: Reports: Urinating. Denies: Ambulating - Review of Systems General: Reports: Fever, Weakness, Fatigue, Chills Pulmonary: Reports: Shortness of Breath. Denies: Pleuritic Chest Pain, Cough, Sputum, Hemoptysis, Wheezing Cardiovascular: Reports: Palpitations, Dyspnea on Exertion. Denies: Chest Pain , Orthopnea, PND, Edema, Lightheadedness Gastrointestinal: Reports: No Symptoms Genitourinary: Reports: No Symptoms - Patient Data Vitals - Most Recent: Last Vital Signs Temp 98.7 F 05/09/20 08:00 Pulse 133 H 05/09/20 09:00 Resp 26 H 05/09/20 09:00 BP 115/69 05/09/20 09:00 Pulse Ox 92 L 05/09/20 09:00 Weight - Most Recent: 178 lb I&O - Last 24 Hours: Intake & Output 05/08/20 05/09/20 05/09/20 22:59 06:59 14:59 Intake Total 100 2655 100 Output Total 100 75 Balance 0 2580 100 Lab Results Last 24 Hours: Laboratory Results - last 24 hr 05/08/20 05/08/20 05/08/20 Range/Units 09:00 15:53 22:04 WBC (4.5-11.0) K/uL RBC (4.30-5.90) M/uL Hgb (12.0-15.0) g/dL Hct (40.0-54.0) % MCV (80-98) fL MCH (27-31) pg MCHC (32-36) % Plt Count (150-400) K/uL Add Manual Diff Neutrophils % (Manual) (36-66) % Band Neutrophils % (5-11) % Lymphocytes % (Manual) (24-44) % Monocytes % (Manual) (2-6) % Eosinophils % (Manual) (2-4) % Metamyelocytes % % Sodium (140-148) mmol/L Potassium (3.6-5.2) mmol/L Chloride (100-108) mmol/L Carbon Dioxide (21-32) mmol/L Anion Gap (5.0-14.0) mmol/L BUN (7-18) mg/dL Creatinine (0.8-1.3) mg/dL Est Cr Clr Drug Dosing mL/min Estimated GFR (MDRD) (>60) Glucose (74-106) mg/dL Lactic Acid 6.3 H 5.2 H (0.4-2.0) mmol/L Calcium (8.5-10.1) mg/dL Magnesium (1.8-2.4) mg/dL Total Bilirubin (0.2-1.0) mg/dL AST (15-37) U/L ALT (12-78) U/L Alkaline Phosphatase (46-116) U/L Total Protein (6.4-8.2) g/dL Albumin (3.4-5.0) g/dL Globulin (2.3-3.5) g/dL Albumin/Globulin Ratio (1.2-2.2) Procalcitonin 89.96 H* ng/mL Digoxin (0.90-2.00) ng/mL 05/09/20 05/09/20 05/09/20 Range/Units 04:55 04:55 04:55 WBC 37.8 H* (4.5-11.0) K/uL RBC 3.99 L (4.30-5.90) M/uL Hgb 12.6 (12.0-15.0) g/dL Hct 39.0 L (40.0-54.0) % MCV 98 (80-98) fL MCH 32 H (27-31) pg MCHC 32 (32-36) % Plt Count 66 L (150-400) K/uL Add Manual Diff Yes Neutrophils % (Manual) 49 (36-66) % Band Neutrophils % 25 H (5-11) % Lymphocytes % (Manual) 4 L (24-44) % Monocytes % (Manual) 9 H (2-6) % Eosinophils % (Manual) 1 L (2-4) % Metamyelocytes % 12 % Sodium 139 L (140-148) mmol/L Potassium 5.6 H (3.6-5.2) mmol/L Chloride 107 (100-108) mmol/L Carbon Dioxide 18 L (21-32) mmol/L Anion Gap 19.6 H (5.0-14.0) mmol/L BUN 50 H (7-18) mg/dL Creatinine 3.2 H (0.8-1.3) mg/dL Est Cr Clr Drug Dosing 18.06 mL/min Estimated GFR (MDRD) 19 L (>60) Glucose 92 (74-106) mg/dL Lactic Acid 4.3 H (0.4-2.0) mmol/L Calcium 7.6 L D (8.5-10.1) mg/dL Magnesium 1.5 L (1.8-2.4) mg/dL Total Bilirubin 0.9 (0.2-1.0) mg/dL AST 238 H D (15-37) U/L ALT 423 H (12-78) U/L Alkaline Phosphatase 228 H (46-116) U/L Total Protein 6.1 L (6.4-8.2) g/dL Albumin 2.8 L (3.4-5.0) g/dL Globulin 3.3 (2.3-3.5) g/dL Albumin/Globulin Ratio 0.9 L (1.2-2.2) Procalcitonin ng/mL Digoxin 1.15 (0.90-2.00) ng/mL Terry Results Last 24 Hours: Microbiology 05/08/20 03:00 Aerobic Blood Culture - Preliminary Blood - Venous - Lab Draw Anaerobic Blood Culture - Preliminary NO GROWTH AFTER 1 DAY 05/08/20 02:45 Aerobic Blood Culture - Preliminary Blood - Venous Anaerobic Blood Culture - Preliminary NO GROWTH AFTER 1 DAY 05/08/20 04:47 Urine Culture - Preliminary Urine, Clean Catch Med Orders - Current: Current Medications Acetaminophen (Tylenol) 650 mg PO Q4H PRN PRN Reason: analgesia/fever Acyclovir (Zovirax) 800 mg PO DAILY [facility] Last Admin: 05/09/20 08:03 Dose: 800 mg Amiodarone HCl (Cordarone) 150 mg IVPUSH ONETIME ONE Stop: 05/09/20 09:43 Apixaban (Eliquis) 2.5 mg PO BID [facility] Last Admin: 05/09/20 08:01 Dose: 2.5 mg Atorvastatin Calcium (Lipitor) 20 mg PO DAILY [facility] Last Admin: 05/09/20 08:01 Dose: 20 mg Docusate Sodium (Colace) 100 mg PO DAILY PRN PRN Reason: Constipation Meropenem 1 gm/ Sodium (Chloride) 100 mls @ 200 mls/hr IV Q8H [facility] Last Admin: 05/09/20 07:58 Dose: 200 mls/hr Sodium Chloride (Normal Saline) 1,000 mls @ 125 mls/hr IV ASDIRECTED [facility] Last Admin: 05/09/20 06:18 Dose: 125 mls/hr Levofloxacin/Dextrose 750 mg/ (Premix) 150 mls @ 100 mls/hr IV ONETIME ONE Stop: 05/09/20 11:29 Vancomycin HCl 1.2 gm/ Sodium (Chloride) 250 mls @ 250 mls/hr IV ONETIME ONE Stop: 05/09/20 12:59 Levofloxacin/Dextrose 500 mg/ (Premix) 100 mls @ 100 mls/hr IV Q48H [facility] Amiodarone HCl 450 mg/ (Dextrose/Water) 250 mls @ 33.33 mls/hr IV ASDIRECTED [facility]; Protocol Norepinephrine Bitartrate 4 mg (/ Dextrose/Water) 250 mls @ 7.5 mls/hr IV TITRATE [facility]; Protocol Metoprolol Tartrate (Lopressor) 50 mg PO BID [facility] Last Admin: 05/09/20 08:01 Dose: 50 mg Oxycodone HCl (Oxycodone) 5 mg PO Q4H PRN PRN Reason: Pain Last Admin: 05/09/20 05:49 Dose: 5 mg Sodium Chloride (Saline Flush) 10 ml FLUSH ASDIRECTED PRN PRN Reason: Keep Vein Open Last Admin: 05/08/20 05:17 Dose: 10 ml Sodium Polystyrene Sulfonate (Kayexalate) 30 gm PO ONETIME ONE Stop: 05/09/20 09:45 Discontinued Medications Acetaminophen (Tylenol) 650 mg PO NOW ONE Stop: 05/08/20 02:25 Last Admin: 05/08/20 02:33 Dose: 650 mg Amlodipine Besylate (Norvasc) 5 mg PO DAILY [facility] Last Admin: 05/08/20 10:23 Dose: Not Given Digoxin (Lanoxin) 250 mcg IVPUSH ONETIME ONE Stop: 05/08/20 13:01 Last Admin: 05/08/20 13:18 Dose: 250 mcg Digoxin (Lanoxin) 250 mcg IVPUSH ONETIME ONE Stop: 05/08/20 15:31 Last Admin: 05/08/20 15:33 Dose: 250 mcg Diltiazem HCl (Diltiazem) 10 mg IVPUSH ONETIME ONE Stop: 05/08/20 21:37 Last Admin: 05/08/20 22:01 Dose: 10 mg Lactated Ringer's (Ringers, Lactated) 1,000 mls @ 999 mls/hr IV ASDIRECTED [facility] Last Infusion: 05/08/20 04:00 Dose: Infused Ceftriaxone Sodium 2 gm/ (Sodium Chloride) 50 mls @ 100 mls/hr IV ONETIME ONE Stop: 05/08/20 05:16 Last Admin: 05/08/20 05:16 Dose: 100 mls/hr Lactated Ringer's (Ringers, Lactated) 1,000 mls @ 500 mls/hr IV ASDIRECTED [facility] Stop: 05/08/20 05:59 Last Admin: 05/08/20 04:00 Dose: 500 mls/hr Lactated Ringer's (Ringers, Lactated) 1,000 mls @ 500 mls/hr IV ASDIRECTED [facility] Stop: 05/08/20 16:31 Last Admin: 05/08/20 14:52 Dose: 500 mls/hr Diltiazem HCl 100 mg/ Sodium (Chloride) 100 mls @ 5 mls/hr IV TITRATE [facility]; Protocol Last Titration: 05/08/20 22:20 Dose: 0 mg/hr, 0 mls/hr Ibuprofen (Motrin) 400 mg PO Q6H PRN PRN Reason: Fever Ondansetron HCl (Zofran) 4 mg IVPUSH ONETIME ONE Stop: 05/08/20 02:25 Last Admin: 05/08/20 02:33 Dose: 4 mg - Exam Quality Assessment: Supplemental Oxygen, DVT Prophylaxis General: Alert, Oriented, Cooperative, Moderate Distress Lungs: Clear to Auscultation, Normal Respiratory Effort, Decreased Breath Sounds Cardiovascular: No Murmurs, Irregular Rhythm, Tachycardia GI/Abdominal Exam: Soft, Non-Tender, No Organomegaly, No Distention Extremities: Non-Tender, No Pedal Edema Skin: Warm, Dry, Intact Sepsis Event Note - Evaluation Sepsis Screening Result: Severe Sepsis Risk - Focused Exam Vital Signs: Vital Signs Temp Pulse Pulse Resp BP BP Pulse Ox 05/09/20 09:00 133 H 26 H 115/69 92 L 05/09/20 08:45 89 L 05/09/20 08:01 132 H 105/54 L 05/09/20 08:00 98.7 F 132 H 23 H 105/54 L 91 L 05/09/20 07:00 129 H 24 H 111/55 L 89 L 05/09/20 06:00 127 H 33 H 91 L 05/09/20 04:00 98.1 F 125 H 35 H 139/88 90 L 05/09/20 02:00 111 H 25 H 90/58 L 90 L 05/09/20 00:00 99.1 F 118 H 27 H 85/50 L 91 L 05/08/20 22:46 105 H 79/51 L 05/08/20 22:17 89 84/59 L 05/08/20 22:00 133 H 30 H 92/62 91 L Date Exam was Performed: 05/09/20 Time Exam was Performed: 09:52 - Problem List Review Problem List Initiated/Reviewed/Updated: Yes - My Orders Last 24 Hours: My Active Orders 05/08/20 12:21 Patient Status [ADT] Routine 05/08/20 12:23 oxyCODONE 5 mg PO Q4H PRN 05/09/20 09:38 BIPAP Adult [RT BiPAP/CPAP] [RC] ASDIRECTED 05/09/20 09:42 Amiodarone [Cordarone] 150 mg IVPUSH ONETIME ONE 05/09/20 09:44 Sodium Polystyrene Sulfonate [Kayexalate] 30 gm PO ONETIME ONE 05/09/20 09:45 Amiodarone [Cordarone] 450 mg Dextrose 5% in Water 241 ml IV ASDIRECTED Norepinephrine [Levophed] 4 mg Dextrose 5% in Water 246 ml IV TITRATE 05/09/20 09:47 Antiembolic Devices [RC] .Routine Sequential Compression Device [OM.PC] Routine 05/09/20 10:00 Levofloxacin/Dextrose 5%-Water [Levaquin in D5W 750 MG/150 ML] 750 mg Premix Bag 1 bag IV ONETIME 05/09/20 12:00 Vancomycin 1.2 gm Sodium Chloride 0.9% [Normal Saline] 250 ml IV ONETIME 05/09/20 17:00 BASIC METABOLIC PANEL,BMP [CHEM] Stat 05/10/20 05:00 CBC WITH AUTO DIFF [HEME] Timed COMPREHENSIVE METABOLIC PN,CMP [CHEM] Timed MAGNESIUM [CHEM] Timed 05/11/20 10:00 Levofloxacin/Dextrose 5%-Water [Levaquin in D5W 500 MG/100 ML] 500 mg Premix Bag 1 bag IV Q48H - Plan Plan:: ASSESSMENT / PLAN SEVERE SEPSIS- secondary to Urinary Tract Infection, associated with significant multiple organ dysfunction including hypoxia, acute kidney injury, atrial fibrillation with rapid ventricular response, hyperkalemia, and elevation in liver enzymes. Blood cultures and urine culture growing gram- negative rods, final ID and sensitivities are pending. -IV Fluids for rehydration Normal Saline 125 mL per hour -IV Antibiotic Meropenem, vancomycin and levofloxacin, pending culture results -blood cultures x2 pending -urine culture pending -IV norepinephrine as needed to manage hypotension A-Fib with rapid ventricular response-heart rate has remained elevated, no significant improvement with digoxin. Attempt at use of diltiazem resulted in significant hypotension -Continue oral metoprolol -IV amiodarone 150 mg IV now followed by 24-hour continuous infusion HYPOXIC RESPIRATORY [id number] shows no obvious infiltrates or obvious pulmonary edema. Does appear that he is experiencing some hypoventilation likely secondary to weakness -Noninvasive positive pressure ventilation -Supplemental oxygen as needed ACUTE KIDNEY INJURY-secondary to sepsis, hypotension, and intravascular volume depletion -Maintain adequate pressures -Closely monitor urine output and renal function TRANSAMINITIS-secondary to hypotension and sepsis -Reassess labs in a.m. HYPERKALEMIA-secondary to renal insufficiency -Kayexalate 30 g p.o. now -Reassess potassium later this afternoon and in a.m. Maintenance issues -Nutrition: health heart diet -Franz catheter not indicated at this time -DVT: Xarelto -PPI; IV Protonix 40mg daily CODE STATUS: FULL Admission status: Admit to [address] [place] [address] Admission justification. This patient will be admitted for inpatient services and is medically appropriate meeting medical necessity for inpatient admission as outlined in my documentation. I reasonably expect the patient will require inpatient services that span. Time over 2 midnights. I reasonably expect this patient to be discharged or transferred within 96 [facility]. Disposition: Assisted living home with Primary care provider: Hospitalist: Dr. Ambriz
[2020-05-09] MEDS ORDERED: Norepinephrine 4 MG in Dextrose 5% in Water 246 ML IV SCH ×2 (10:15)
[2020-05-09] MEDS ORDERED: Amiodarone 150 MG/3 ML SDV IVPUSH ONE (10:15)
[2020-05-09] MEDS ORDERED: Sodium Polystyrene Sulfonate 15 GM/60 ML Susp 60 ML Bot PO ONE (10:15)
[2020-05-09] MEDS ORDERED: Amiodarone 150 MG in Dextrose 5% in Water 100 ML IV ONE ×4 (10:30)
[2020-05-09] MEDS ORDERED: Vancomycin 1.2 GM in Sodium Chloride 0.9% 250 ML IV ONE (12:00)
[2020-05-09] MEDS ORDERED: Sodium Chloride 0.9% 1,000 ML IV SCH (17:30)
[2020-05-09] MEDS ORDERED: Metoprolol Tartrate 25 MG Tab PO SCH (21:00)
[2020-05-09] MEDS: BIMATOPROST EYEBOTH SCH (21:35)
[2020-05-10] MEDS: oxyCODONE 5 MG Tab PO PRN ×2 (05:10→09:36)
[2020-05-10] MEDS: Meropenem 1 GM in Sodium Chloride 0.9% 100 ML IV SCH (08:06)
[2020-05-10] MEDS ORDERED: HYDROmorphone 0.5 MG/0.5 ML Syringe IVPUSH PRN (08:50)
[2020-05-10] MEDS ORDERED: Fluorometholone 0.1% Ophth Susp 5 ML Bottle EYERT SCH (09:00)
--- NOTE | 2020-05-10 09:00 | PCM.PN ---
- General Info Date of Service: 05/10/20 Subjective Update: has shown some improvement over the last 24 hours. Renal function appears to have stabilized although creatinine remains elevated urine output has improved quite a bit. Respiratory status has been more stable and he is no longer requiring IV norepinephrine. He is completing his infusion of amiodarone. Heart rate improved significantly when amiodarone was started and he did convert to sinus rhythm last night. This morning heart rate is elevated again in the range of 130. He is confused and unable to provide a meaningful history concerning symptoms or review of systems. - Patient Data Vitals - Most Recent: Last Vital Signs Temp 98.4 F 05/10/20 05:00 Pulse 129 H 05/10/20 07:00 Resp 24 H 05/10/20 07:00 BP 152/89 H 05/10/20 07:00 Pulse Ox 94 L 05/10/20 07:00 Weight - Most Recent: 178 lb I&O - Last 24 Hours: Intake & Output 05/09/20 05/10/20 05/10/20 22:59 06:59 14:59 Intake Total 1537 656 100 Output Total 175 400 125 Balance 1362 256 -25 Lab Results Last 24 Hours: Laboratory Results - last 24 hr 05/09/20 05/10/20 05/10/20 Range/Units 17:00 05:05 05:05 WBC 36.1 H* (4.5-11.0) K/uL RBC 3.83 L (4.30-5.90) M/uL Hgb 11.5 L (12.0-15.0) g/dL Hct 36.4 L (40.0-54.0) % MCV 95 (80-98) fL MCH 30 (27-31) pg MCHC 32 (32-36) % Plt Count 64 L (150-400) K/uL Add Manual Diff Yes Neutrophils % (Manual) 65 (36-66) % Band Neutrophils % 21 H (5-11) % Lymphocytes % (Manual) 2 L (24-44) % Monocytes % (Manual) 4 (2-6) % Metamyelocytes % 8 % Anisocytosis Moderate H Sodium 139 L 139 L (140-148) mmol/L Potassium 5.0 4.7 (3.6-5.2) mmol/L Chloride 107 107 (100-108) mmol/L Carbon Dioxide 19 L 18 L (21-32) mmol/L Anion Gap 18.0 H 18.7 H (5.0-14.0) mmol/L BUN 52 H 57 H (7-18) mg/dL Creatinine 3.2 H 3.3 H (0.8-1.3) mg/dL Est Cr Clr Drug Dosing 18.06 17.51 mL/min Estimated GFR (MDRD) 19 L 18 L (>60) Glucose 110 H 98 (74-106) mg/dL Lactic Acid (0.4-2.0) mmol/L Calcium 7.4 L 7.7 L (8.5-10.1) mg/dL Magnesium 1.5 L (1.8-2.4) mg/dL Total Bilirubin 0.9 (0.2-1.0) mg/dL AST 89 H (15-37) U/L ALT 244 H (12-78) U/L Alkaline Phosphatase 231 H (46-116) U/L Total Protein 5.6 L (6.4-8.2) g/dL Albumin 2.4 L (3.4-5.0) g/dL Globulin 3.2 (2.3-3.5) g/dL Albumin/Globulin Ratio 0.8 L (1.2-2.2) 05/10/20 Range/Units 05:05 WBC (4.5-11.0) K/uL RBC (4.30-5.90) M/uL Hgb (12.0-15.0) g/dL Hct (40.0-54.0) % MCV (80-98) fL MCH (27-31) pg MCHC (32-36) % Plt Count (150-400) K/uL Add Manual Diff Neutrophils % (Manual) (36-66) % Band Neutrophils % (5-11) % Lymphocytes % (Manual) (24-44) % Monocytes % (Manual) (2-6) % Metamyelocytes % % Anisocytosis Sodium (140-148) mmol/L Potassium (3.6-5.2) mmol/L Chloride (100-108) mmol/L Carbon Dioxide (21-32) mmol/L Anion Gap (5.0-14.0) mmol/L BUN (7-18) mg/dL Creatinine (0.8-1.3) mg/dL Est Cr Clr Drug Dosing mL/min Estimated GFR (MDRD) (>60) Glucose (74-106) mg/dL Lactic Acid 2.1 H (0.4-2.0) mmol/L Calcium (8.5-10.1) mg/dL Magnesium (1.8-2.4) mg/dL Total Bilirubin (0.2-1.0) mg/dL AST (15-37) U/L ALT (12-78) U/L Alkaline Phosphatase (46-116) U/L Total Protein (6.4-8.2) g/dL Albumin (3.4-5.0) g/dL Globulin (2.3-3.5) g/dL Albumin/Globulin Ratio (1.2-2.2) Terry Results Last 24 Hours: Microbiology 05/08/20 03:00 Aerobic Blood Culture - Final Blood - Venous - Lab Draw Klebsiella Pneumonia Ss Pneumo Anaerobic Blood Culture - Final Klebsiella Pneumonia Ss Pneumo 05/08/20 02:45 Aerobic Blood Culture - Final Blood - Venous Klebsiella Pneumonia Ss Pneumo Anaerobic Blood Culture - Final Klebsiella Pneumonia Ss Pneumo 05/08/20 04:47 Urine Culture - Final Urine, Clean Catch Klebsiella Pneumonia Ss Pneumo Med Orders - Current: Current Medications Acetaminophen (Tylenol) 650 mg PO Q4H PRN PRN Reason: analgesia/fever Last Admin: 05/09/20 14:57 Dose: 650 mg Acyclovir (Zovirax) 800 mg PO DAILY [facility] Last Admin: 05/09/20 08:03 Dose: 800 mg Amiodarone HCl (Cordarone) 400 mg PO DAILY [facility] Apixaban (Eliquis) 2.5 mg PO BID [facility] Last Admin: 05/09/20 21:36 Dose: 2.5 mg Atorvastatin Calcium (Lipitor) 20 mg PO DAILY [facility] Last Admin: 05/09/20 08:01 Dose: 20 mg Docusate Sodium (Colace) 100 mg PO DAILY PRN PRN Reason: Constipation Fluorometholone (Flarex 0.1% Ophth Susp) 0 ml EYERT Q48H [facility] Hydromorphone HCl (Dilaudid) 0.5 mg IVPUSH Q2H PRN PRN Reason: Pain (severe 7-10) Meropenem 1 gm/ Sodium (Chloride) 100 mls @ 200 mls/hr IV Q8H [facility] Last Admin: 05/10/20 08:06 Dose: 200 mls/hr Levofloxacin/Dextrose 500 mg/ (Premix) 100 mls @ 100 mls/hr IV Q48H [facility] Amiodarone HCl 450 mg/ (Dextrose/Water) 250 mls @ 33.33 mls/hr IV ASDIRECTED [facility]REA; Protocol Last Titration: 05/09/20 18:26 Dose: 0.49 mg/min, 16.6 mls/hr Norepinephrine Bitartrate 4 mg (/ Dextrose/Water) 250 mls @ 7.5 mls/hr IV TITRATE [facility]; Protocol Last Titration: 05/09/20 19:39 Dose: 2 mcg/min, 7.5 mls/hr Magnesium Sulfate 2 gm/ Premix 50 mls @ 25 mls/hr IV Q6H [facility] Stop: 05/10/20 23:59 Melatonin (Melatonin) 9 mg PO BEDTIME [facility] Metoprolol Tartrate (Lopressor) 50 mg PO BID [facility] Bimatoprost (Lumigan 0.01% Ophth Soln) Pom 0 drop EYEBOTH BEDTIME [facility] Last Admin: 05/09/20 21:35 Dose: 1 drop Oxycodone HCl (Oxycodone) 10 mg PO Q4H PRN PRN Reason: Pain (moderate 4-6) Prednisolone Acetate (Pred Forte 1% Ophth Susp) 0 ml EYERT DAILY [facility] Sodium Chloride (Saline Flush) 10 ml FLUSH ASDIRECTED PRN PRN Reason: Keep Vein Open Last Admin: 05/08/20 05:17 Dose: 10 ml Discontinued Medications Acetaminophen (Tylenol) 650 mg PO NOW ONE Stop: 05/08/20 02:25 Last Admin: 05/08/20 02:33 Dose: 650 mg Amlodipine Besylate (Norvasc) 5 mg PO DAILY [facility] Last Admin: 05/08/20 10:23 Dose: Not Given Digoxin (Lanoxin) 250 mcg IVPUSH ONETIME ONE Stop: 05/08/20 13:01 Last Admin: 05/08/20 13:18 Dose: 250 mcg Digoxin (Lanoxin) 250 mcg IVPUSH ONETIME ONE Stop: 05/08/20 15:31 Last Admin: 05/08/20 15:33 Dose: 250 mcg Diltiazem HCl (Diltiazem) 10 mg IVPUSH ONETIME ONE Stop: 05/08/20 21:37 Last Admin: 05/08/20 22:01 Dose: 10 mg Lactated Ringer's (Ringers, Lactated) 1,000 mls @ 999 mls/hr IV ASDIRECTED [facility] Last Infusion: 05/08/20 04:00 Dose: Infused Ceftriaxone Sodium 2 gm/ (Sodium Chloride) 50 mls @ 100 mls/hr IV ONETIME ONE Stop: 05/08/20 05:16 Last Admin: 05/08/20 05:16 Dose: 100 mls/hr Lactated Ringer's (Ringers, Lactated) 1,000 mls @ 500 mls/hr IV ASDIRECTED [facility] Stop: 05/08/20 05:59 Last Admin: 05/08/20 04:00 Dose: 500 mls/hr Sodium Chloride (Normal Saline) 1,000 mls @ 125 mls/hr IV ASDIRECTED [facility] Last Admin: 05/09/20 06:18 Dose: 125 mls/hr Lactated Ringer's (Ringers, Lactated) 1,000 mls @ 500 mls/hr IV ASDIRECTED [facility] Stop: 05/08/20 16:31 Last Admin: 05/08/20 14:52 Dose: 500 mls/hr Diltiazem HCl 100 mg/ Sodium (Chloride) 100 mls @ 5 mls/hr IV TITRATE [facility]; Protocol Last Titration: 05/08/20 22:20 Dose: 0 mg/hr, 0 mls/hr Levofloxacin/Dextrose 750 mg/ (Premix) 150 mls @ 100 mls/hr IV ONETIME ONE Stop: 05/09/20 11:29 Last Admin: 05/09/20 10:32 Dose: 100 mls/hr Vancomycin HCl 1.2 gm/ Sodium (Chloride) 250 mls @ 250 mls/hr IV ONETIME ONE Stop: 05/09/20 12:59 Last Admin: 05/09/20 12:30 Dose: 250 mls/hr Amiodarone HCl 150 mg/ (Dextrose/Water) 103 mls @ 618 mls/hr IV ONETIME ONE Stop: 05/09/20 10:39 Last Admin: 05/09/20 10:30 Dose: 618 mls/hr Sodium Chloride (Normal Saline) 1,000 mls @ 50 mls/hr IV ASDIRECTED [facility] Last Admin: 05/09/20 17:57 Dose: 50 mls/hr Ibuprofen (Motrin) 400 mg PO Q6H PRN PRN Reason: Fever Metoprolol Tartrate (Lopressor) 50 mg PO BID [facility] Last Admin: 05/09/20 08:01 Dose: 50 mg Metoprolol Tartrate (Lopressor) 25 mg PO BID [facility] Last Admin: 05/09/20 21:37 Dose: 25 mg Ondansetron HCl (Zofran) 4 mg IVPUSH ONETIME ONE Stop: 05/08/20 02:25 Last Admin: 05/08/20 02:33 Dose: 4 mg Oxycodone HCl (Oxycodone) 5 mg PO Q4H PRN PRN Reason: Pain Last Admin: 05/10/20 05:10 Dose: 5 mg Sodium Polystyrene Sulfonate (Kayexalate) 30 gm PO ONETIME ONE Stop: 05/09/20 10:16 Last Admin: 05/09/20 11:02 Dose: 30 gm - Exam Quality Assessment: Supplemental Oxygen, DVT Prophylaxis General: Alert, Cooperative, Moderate Distress. No: Oriented Lungs: Clear to Auscultation, Normal Respiratory Effort, Decreased Breath Sounds Cardiovascular: No Murmurs, Irregular Rhythm, Tachycardia GI/Abdominal Exam: Soft, Non-Tender, No Organomegaly, No Distention Extremities: Non-Tender, Pedal Edema Sepsis Event Note - Evaluation Sepsis Screening Result: No Definite Risk - Focused Exam Vital Signs: Vital Signs Temp Pulse Pulse Resp BP BP Pulse Ox 05/10/20 07:00 129 H 24 H 152/89 H 94 L 05/10/20 06:00 102 H 39 H 138/83 93 L 05/10/20 05:00 98.4 F 86 36 H 140/77 95 05/10/20 04:00 81 25 H 139/83 95 05/10/20 03:00 75 29 H 142/77 H 96 05/10/20 02:00 77 27 H 137/76 95 05/10/20 01:00 74 24 H 125/62 95 05/10/20 00:30 82 26 H 165/91 H 91 L 05/10/20 00:00 74 26 H 172/84 H 96 05/09/20 23:43 98.6 F 05/09/20 23:00 64 22 H 153/90 H 97 05/09/20 22:30 67 24 H 149/81 H 96 05/09/20 22:00 66 21 H 157/82 H 95 05/09/20 21:37 66 154/84 H 05/09/20 21:30 68 27 H 154/84 H 95 05/09/20 21:00 64 18 137/81 94 L Date Exam was Performed: 05/10/20 Time Exam was Performed: 08:53 - Problem List Review Problem List Initiated/Reviewed/Updated: Yes - My Orders Last 24 Hours: My Active Orders 05/09/20 09:38 BIPAP Adult [RT BiPAP/CPAP] [RC] ASDIRECTED 05/09/20 09:45 Amiodarone [Cordarone] 450 mg Dextrose 5% in Water 241 ml IV ASDIRECTED 05/09/20 09:47 Antiembolic Devices [RC] .Routine Sequential Compression Device [OM.PC] Routine 05/09/20 10:15 Norepinephrine [Levophed] 4 mg Dextrose 5% in Water 246 ml IV TITRATE 05/09/20 21:00 Bimatoprost [LUMIGAN 0.01% Ophth Soln] 0 drop EYEBOTH BEDTIME 05/10/20 08:50 HYDROmorphone [Dilaudid] 0.5 mg IVPUSH Q2H PRN 05/10/20 08:51 oxyCODONE 10 mg PO Q4H PRN 05/10/20 08:52 Convert IV to Saline Lock [OM.PC] Routine 05/10/20 09:00 Amiodarone [Cordarone] 400 mg PO DAILY Fluorometholone [Flarex 0.1% Ophth Susp] 0 ml EYERT Q48H Metoprolol Tartrate [Lopressor] 50 mg PO BID 05/10/20 10:00 Magnesium Sulfate/Water [Magnesium Sulfate in Water Premix] 2 gm Premix Bag 1 bag IV Q6H 05/10/20 16:00 prednisoLONE acetate [Pred Forte 1% Ophth Susp] 0 ml EYERT DAILY 05/10/20 21:00 Melatonin 9 mg PO BEDTIME 05/11/20 05:00 CBC WITH AUTO DIFF [HEME] Timed COMPREHENSIVE METABOLIC PN,CMP [CHEM] Timed MAGNESIUM [CHEM] Timed 05/11/20 10:00 Levofloxacin/Dextrose 5%-Water [Levaquin in D5W 500 MG/100 ML] 500 mg Premix Bag 1 bag IV Q48H - Plan Plan:: ASSESSMENT / PLAN SEVERE SEPSIS- secondary to Urinary Tract Infection, associated with significant multiple organ dysfunction including hypoxia, acute kidney injury, atrial fibrillation with rapid ventricular response, hyperkalemia, and elevation in liver enzymes. Blood cultures and urine culture growing up see Deena which is found to be pansensitive. Pressure has stabilized, no longer requiring IV norepinephrine -Saline lock IV -Discontinue IV vancomycin -IV Antibiotic Meropenem, levofloxacin A-Fib with rapid ventricular response-initially heart rate improved with use of amiodarone and he later converted to sinus rhythm, tachycardia has reoccurred this morning. He will complete his infusion of amiodarone this morning -Continue oral metoprolol -IV amiodarone 24-hour continuous infusion -Amiodarone 400 mg p.o. daily HYPOXIC RESPIRATORY [id number] shows no obvious infiltrates or obvious pulmonary edema. Respiratory status is stabilized, he is having a hard time tolerating noninvasive positive pressure ventilation -Noninvasive positive pressure ventilation -Supplemental oxygen as needed ACUTE KIDNEY INJURY-secondary to sepsis, hypotension, and intravascular volume depletion. Creatinine has stabilized although remains elevated, urine output improved -Maintain adequate pressures -Closely monitor urine output and renal function TRANSAMINITIS-secondary to hypotension and sepsis -Reassess labs in a.m. HYPERKALEMIA-resolved -Reassess potassium in a.m. Maintenance issues -Nutrition: health heart diet -Franz catheter not indicated at this time -DVT: Xarelto -PPI; IV Protonix 40mg daily CODE STATUS: FULL Admission status: Admit to [address] [place] [address] justification. This patient will be admitted for inpatient services and is medically appropriate meeting medical necessity for inpatient admission as outlined in my documentation. I reasonably expect the patient will require inpatient services that span. Time over 2 midnights. I reasonably expect this patient to be discharged or transferred within 96 hours after admission to the critical access [facility]. Disposition: Assisted living home with Primary care provider: Hospitalist: Dr. Ambriz
[2020-05-10] MEDS: Magnesium Sulfate/Water 2 GM in Premix Bag 1 BAG IV SCH ×3 (09:37→22:27)
[2020-05-10] MEDS: Acyclovir 200 MG Cap PO SCH (09:38)
[2020-05-10] MEDS: Apixaban 2.5 MG Tab PO SCH ×2 (09:38→22:04)
[2020-05-10] MEDS: Amiodarone 200 MG Tab PO SCH (09:38)
[2020-05-10] MEDS: atorvaSTATin 20 MG Tab PO SCH (09:38)
[2020-05-10] MEDS: Metoprolol Tartrate 50 MG Tab PO SCH ×2 (09:39→22:04)
[2020-05-10] MEDS ORDERED: Ondansetron 4 MG/2 ML SDV IVPUSH PRN (11:17)
[2020-05-10] MEDS: LORazepam 2 MG/ML SDV IVPUSH PRN ×2 (13:48→22:35)
[2020-05-10] MEDS ORDERED: Digoxin 500 MCG/2 ML Amp IVPUSH ONE (15:30)
[2020-05-10] MEDS ORDERED: PREDNISOLONE ACETATE 1% EYERT SCH (16:00)
[2020-05-10] MEDS ORDERED: Meropenem 1 GM in Sodium Chloride 0.9% 100 ML IV SCH (20:00)
[2020-05-10] MEDS: Meropenem 500 MG in Sodium Chloride 0.9% 50 ML IV SCH (20:01)
[2020-05-10] MEDS: Brimonidine 0.2% Ophth Soln 5 ML Bottle EYEBOTH SCH (22:02)
[2020-05-10] MEDS: BIMATOPROST EYEBOTH SCH (22:03)
[2020-05-10] MEDS: TIMOLOL MALEATE 0.5% EYEBOTH SCH (22:04)
[2020-05-10] MEDS: Melatonin 3 MG Tab PO SCH (22:04)
[2020-05-10] MEDS: Dorzolamide 2% Ophth Soln 10 ML Bottle EYEBOTH SCH (22:05)
[2020-05-11] MEDS: Dorzolamide 2% Ophth Soln 10 ML Bottle EYEBOTH SCH ×2 (09:26→21:31)
[2020-05-11] MEDS: Brimonidine 0.2% Ophth Soln 5 ML Bottle EYEBOTH SCH ×2 (09:26→21:31)
[2020-05-11] MEDS: Meropenem 500 MG in Sodium Chloride 0.9% 50 ML IV SCH ×2 (09:27→20:02)
[2020-05-11] MEDS: TIMOLOL MALEATE 0.5% EYEBOTH SCH ×2 (09:27→21:32)
[2020-05-11] MEDS: Apixaban 2.5 MG Tab PO SCH ×2 (09:48→21:32)
[2020-05-11] MEDS: Acyclovir 200 MG Cap PO SCH (09:48)
[2020-05-11] MEDS: Metoprolol Tartrate 50 MG Tab PO SCH ×2 (09:49→21:32)
[2020-05-11] MEDS: atorvaSTATin 20 MG Tab PO SCH (09:49)
[2020-05-11] MEDS: Amiodarone 200 MG Tab PO SCH (09:49)
[2020-05-11] MEDS: Levofloxacin/Dextrose 5%-Water 500 MG in Premix Bag 1 BAG IV SCH (09:50)
[2020-05-11] MEDS ORDERED: Haloperidol Lactate 5 MG/ML SDV IVPUSH PRN (09:59)
--- NOTE | 2020-05-11 09:59 | PCM.PN ---
- General Info Date of Service: 05/11/20 Subjective Update: remains critically ill but has been stable from yesterday. He has been afebrile, white blood cell count remains markedly elevated. Renal function stable with persistent elevation in creatinine, not worsening. Urine output has improved over the last 24 hours. Heart rate has remained relatively well controlled and blood pressure fairly stable. He is unable to provide meaningful information concerning recent symptoms or review of systems because of current delirium. Functional Status: Reports: Urinating - Patient Data Vitals - Most Recent: Last Vital Signs Temp 98.7 F 05/11/20 05:00 Pulse 92 05/11/20 09:49 Resp 22 H 05/11/20 06:00 BP 143/78 H 05/11/20 09:49 Pulse Ox 93 L 05/11/20 06:00 Weight - Most Recent: 178 lb I&O - Last 24 Hours: Intake & Output 05/10/20 05/11/20 05/11/20 22:59 06:59 14:59 Output Total 200 150 Balance -200 -150 Lab Results Last 24 Hours: Laboratory Results - last 24 hr 05/11/20 05/11/20 05/11/20 Range/Units 06:11 06:11 06:11 WBC 33.9 H* (4.5-11.0) K/uL RBC 3.89 L (4.30-5.90) M/uL Hgb 11.8 L (12.0-15.0) g/dL Hct 36.7 L (40.0-54.0) % MCV 94 (80-98) fL MCH 30 (27-31) pg MCHC 32 (32-36) % Plt Count 74 L (150-400) K/uL Add Manual Diff Yes Neutrophils % (Manual) 81 H (36-66) % Band Neutrophils % 8 (5-11) % Lymphocytes % (Manual) 4 L (24-44) % Monocytes % (Manual) 4 (2-6) % Eosinophils % (Manual) 1 L (2-4) % Metamyelocytes % 2 % Sodium 141 (140-148) mmol/L Potassium 4.8 (3.6-5.2) mmol/L Chloride 110 H (100-108) mmol/L Carbon Dioxide 16 L (21-32) mmol/L Anion Gap 19.8 H (5.0-14.0) mmol/L BUN 65 H (7-18) mg/dL Creatinine 3.3 H (0.8-1.3) mg/dL Est Cr Clr Drug Dosing 17.51 mL/min Estimated GFR (MDRD) 18 L (>60) Glucose 92 (74-106) mg/dL Calcium 8.1 L (8.5-10.1) mg/dL Magnesium 3.5 H (1.8-2.4) mg/dL Total Bilirubin 0.8 (0.2-1.0) mg/dL AST 38 H (15-37) U/L ALT 159 H (12-78) U/L Alkaline Phosphatase 208 H (46-116) U/L Total Protein 5.7 L (6.4-8.2) g/dL Albumin 2.3 L (3.4-5.0) g/dL Globulin 3.4 (2.3-3.5) g/dL Albumin/Globulin Ratio 0.7 L (1.2-2.2) Digoxin 1.77 (0.90-2.00) ng/mL Terry Results Last 24 Hours: Microbiology 05/08/20 03:00 Aerobic Blood Culture - Final Blood - Venous - Lab Draw Klebsiella Pneumonia Ss Pneumo Anaerobic Blood Culture - Final Klebsiella Pneumonia Ss Pneumo 05/08/20 02:45 Aerobic Blood Culture - Final Blood - Venous Klebsiella Pneumonia Ss Pneumo Anaerobic Blood Culture - Final Klebsiella Pneumonia Ss Pneumo 05/08/20 04:47 Urine Culture - Final Urine, Clean Catch Klebsiella Pneumonia Ss Pneumo Med Orders - Current: Current Medications Acetaminophen (Tylenol) 650 mg PO Q4H PRN PRN Reason: analgesia/fever Last Admin: 05/09/20 14:57 Dose: 650 mg Acyclovir (Zovirax) 800 mg PO DAILY [facility] Last Admin: 05/11/20 09:48 Dose: 800 mg Amiodarone HCl (Cordarone) 400 mg PO DAILY [facility] Last Admin: 05/11/20 09:49 Dose: 400 mg Apixaban (Eliquis) 2.5 mg PO BID [facility] Last Admin: 05/11/20 09:48 Dose: 2.5 mg Atorvastatin Calcium (Lipitor) 20 mg PO DAILY [facility] Last Admin: 05/11/20 09:49 Dose: 20 mg Brimonidine Tartrate (Alphagan 0.2% Oph Soln) 0 ml EYEBOTH BID [facility] Last Admin: 05/11/20 09:26 Dose: 1 drop Docusate Sodium (Colace) 100 mg PO DAILY PRN PRN Reason: Constipation Dorzolamide HCl (Trusopt 2% Ophth Soln) 0 ml EYEBOTH BID [facility] Last Admin: 05/11/20 09:26 Dose: 1 drop Hydromorphone HCl (Dilaudid) 0.5 mg IVPUSH Q2H PRN PRN Reason: Pain (severe 7-10) Last Admin: 05/10/20 12:06 Dose: 0.5 mg Levofloxacin/Dextrose 500 mg/ (Premix) 100 mls @ 100 mls/hr IV Q48H [facility] Last Admin: 05/11/20 09:50 Dose: 100 mls/hr Norepinephrine Bitartrate 4 mg (/ Dextrose/Water) 250 mls @ 7.5 mls/hr IV TITRATE [facility]; Protocol Last Titration: 05/09/20 19:39 Dose: 2 mcg/min, 7.5 mls/hr Meropenem 500 mg/ Sodium (Chloride) 50 mls @ 100 mls/hr IV Q12H [facility] Last Admin: 05/11/20 09:27 Dose: 100 mls/hr Lorazepam (Ativan) 0.5 mg IVPUSH Q2H PRN PRN Reason: Anxiety Last Admin: 05/10/20 22:35 Dose: 0.5 mg Melatonin (Melatonin) 9 mg PO BEDTIME [facility] Last Admin: 05/10/20 22:04 Dose: 9 mg Metoprolol Tartrate (Lopressor) 50 mg PO BID [facility] Last Admin: 05/11/20 09:49 Dose: 50 mg Bimatoprost (Lumigan 0.01% Ophth Soln) Pom 0 drop EYEBOTH BEDTIME [facility] Last Admin: 05/10/20 22:03 Dose: 1 drop Ondansetron HCl (Zofran) 4 mg IVPUSH Q4H PRN PRN Reason: Nausea/Vomiting Oxycodone HCl (Oxycodone) 10 mg PO Q4H PRN PRN Reason: Pain (moderate 4-6) Last Admin: 05/10/20 09:36 Dose: 10 mg Sodium Chloride (Saline Flush) 10 ml FLUSH ASDIRECTED PRN PRN Reason: Keep Vein Open Last Admin: 05/08/20 05:17 Dose: 10 ml Timolol Maleate (Timoptic 0.5% Ophth Soln) 0 ml EYEBOTH BID [facility] Last Admin: 05/11/20 09:27 Dose: 1 drop Discontinued Medications Acetaminophen (Tylenol) 650 mg PO NOW ONE Stop: 05/08/20 02:25 Last Admin: 05/08/20 02:33 Dose: 650 mg Amlodipine Besylate (Norvasc) 5 mg PO DAILY [facility] Last Admin: 05/08/20 10:23 Dose: Not Given Digoxin (Lanoxin) 250 mcg IVPUSH ONETIME ONE Stop: 05/08/20 13:01 Last Admin: 05/08/20 13:18 Dose: 250 mcg Digoxin (Lanoxin) 250 mcg IVPUSH ONETIME ONE Stop: 05/08/20 15:31 Last Admin: 05/08/20 15:33 Dose: 250 mcg Digoxin (Lanoxin) 250 mcg IVPUSH ONETIME ONE Stop: 05/10/20 15:31 Last Admin: 05/10/20 15:43 Dose: 250 mcg Diltiazem HCl (Diltiazem) 10 mg IVPUSH ONETIME ONE Stop: 05/08/20 21:37 Last Admin: 05/08/20 22:01 Dose: 10 mg Fluorometholone (Flarex 0.1% Ophth Susp) 0 ml EYERT Q48H [facility] Last Admin: 05/10/20 09:39 Dose: 1 drop Lactated Ringer's (Ringers, Lactated) 1,000 mls @ 999 mls/hr IV ASDIRECTED [facility] Last Infusion: 05/08/20 04:00 Dose: Infused Ceftriaxone Sodium 2 gm/ (Sodium Chloride) 50 mls @ 100 mls/hr IV ONETIME ONE Stop: 05/08/20 05:16 Last Admin: 05/08/20 05:16 Dose: 100 mls/hr Lactated Ringer's (Ringers, Lactated) 1,000 mls @ 500 mls/hr IV ASDIRECTED [facility] Stop: 05/08/20 05:59 Last Admin: 05/08/20 04:00 Dose: 500 mls/hr Meropenem 1 gm/ Sodium (Chloride) 100 mls @ 200 mls/hr IV Q8H [facility] Last Admin: 05/10/20 08:06 Dose: 200 mls/hr Sodium Chloride (Normal Saline) 1,000 mls @ 125 mls/hr IV ASDIRECTED [facility] Last Admin: 05/09/20 06:18 Dose: 125 mls/hr Lactated Ringer's (Ringers, Lactated) 1,000 mls @ 500 mls/hr IV ASDIRECTED [facility] Stop: 05/08/20 16:31 Last Admin: 05/08/20 14:52 Dose: 500 mls/hr Diltiazem HCl 100 mg/ Sodium (Chloride) 100 mls @ 5 mls/hr IV TITRATE [facility]; Protocol Last Titration: 05/08/20 22:20 Dose: 0 mg/hr, 0 mls/hr Levofloxacin/Dextrose 750 mg/ (Premix) 150 mls @ 100 mls/hr IV ONETIME ONE Stop: 05/09/20 11:29 Last Admin: 05/09/20 10:32 Dose: 100 mls/hr Vancomycin HCl 1.2 gm/ Sodium (Chloride) 250 mls @ 250 mls/hr IV ONETIME ONE Stop: 05/09/20 12:59 Last Admin: 05/09/20 12:30 Dose: 250 mls/hr Amiodarone HCl 450 mg/ (Dextrose/Water) 250 mls @ 33.33 mls/hr IV ASDIRECTED [facility]; Protocol Last Titration: 05/09/20 18:26 Dose: 0.49 mg/min, 16.6 mls/hr Amiodarone HCl 150 mg/ (Dextrose/Water) 103 mls @ 618 mls/hr IV ONETIME ONE Stop: 05/09/20 10:39 Last Admin: 05/09/20 10:30 Dose: 618 mls/hr Sodium Chloride (Normal Saline) 1,000 mls @ 50 mls/hr IV ASDIRECTED [facility] Last Admin: 05/09/20 17:57 Dose: 50 mls/hr Magnesium Sulfate 2 gm/ Premix 50 mls @ 25 mls/hr IV Q6H [facility] Stop: 05/10/20 23:59 Last Admin: 05/10/20 22:27 Dose: 25 mls/hr Ibuprofen (Motrin) 400 mg PO Q6H PRN PRN Reason: Fever Metoprolol Tartrate (Lopressor) 50 mg PO BID [facility] Last Admin: 05/09/20 08:01 Dose: 50 mg Metoprolol Tartrate (Lopressor) 25 mg PO BID [facility] Last Admin: 05/09/20 21:37 Dose: 25 mg Ondansetron HCl (Zofran) 4 mg IVPUSH ONETIME ONE Stop: 05/08/20 02:25 Last Admin: 05/08/20 02:33 Dose: 4 mg Oxycodone HCl (Oxycodone) 5 mg PO Q4H PRN PRN Reason: Pain Last Admin: 05/10/20 05:10 Dose: 5 mg Prednisolone Acetate (Pred Forte 1% Ophth Susp) 0 ml EYERT DAILY [facility] Sodium Polystyrene Sulfonate (Kayexalate) 30 gm PO ONETIME ONE Stop: 05/09/20 10:16 Last Admin: 05/09/20 11:02 Dose: 30 gm - Exam General: Cooperative, Moderate Distress, Lethargic. No: Oriented Lungs: Clear to Auscultation, Normal Respiratory Effort Cardiovascular: Regular Rate, Regular Rhythm, No Murmurs GI/Abdominal Exam: Soft, Non-Tender, No Organomegaly, No Distention Extremities: Non-Tender, Pedal Edema Skin: Warm, Dry Sepsis Event Note - Evaluation Sepsis Screening Result: Severe Sepsis Risk - Focused Exam Vital Signs: Vital Signs Temp Pulse Pulse Resp BP BP Pulse Ox 05/11/20 09:49 92 143/78 H 05/11/20 06:00 105 H 22 H 94/56 L 93 L 05/11/20 05:00 98.7 F 111 H 19 113/66 94 L 05/11/20 04:00 96 20 103/61 92 L 05/11/20 03:00 103 H 18 98/57 L 93 L 05/11/20 02:00 103 H 19 89/65 L 93 L 05/11/20 01:00 98.5 F 98 20 98/50 L 93 L 05/11/20 00:00 99.0 F 97 21 H 109/57 L 94 L 05/10/20 23:00 108 H 20 102/64 95 05/10/20 22:04 109 H 127/70 05/10/20 22:00 100 20 127/70 93 L Date Exam was Performed: 05/11/20 Time Exam was Performed: 09:52 - Problem List Review Problem List Initiated/Reviewed/Updated: Yes - My Orders Last 24 Hours: My Active Orders 05/10/20 09:00 Amiodarone [Cordarone] 400 mg PO DAILY Metoprolol Tartrate [Lopressor] 50 mg PO BID 05/10/20 11:17 Ondansetron [Zofran] 4 mg IVPUSH Q4H PRN 05/10/20 13:37 LORazepam [Ativan] 0.5 mg IVPUSH Q2H PRN 05/10/20 20:00 Meropenem [Merrem] 500 mg Sodium Chloride 0.9% [Normal Saline] 50 ml IV Q12H 05/10/20 21:00 Brimonidine [Alphagan 0.2% Ophth Soln] 0 ml EYEBOTH BID Dorzolamide [Trusopt 2% Ophth Soln] 0 ml EYEBOTH BID Melatonin 9 mg PO BEDTIME timoloL maleate [Timoptic 0.5% Ophth Soln] 0 ml EYEBOTH BID 05/11/20 10:00 Levofloxacin/Dextrose 5%-Water [Levaquin in D5W 500 MG/100 ML] 500 mg Premix Bag 1 bag IV Q48H 05/12/20 05:00 CBC WITH AUTO DIFF [HEME] Timed COMPREHENSIVE METABOLIC PN,CMP [CHEM] Timed - Plan Plan:: ASSESSMENT / PLAN SEPTIC SHOCK- secondary to Urinary Tract Infection, associated with significant multiple organ dysfunction including hypoxia, acute kidney injury, atrial fibrillation with rapid ventricular response, hyperkalemia, and elevation in liver enzymes. Blood cultures and urine culture growing Klebsiella which is found to be pansensitive. Pressure has stabilized, no longer requiring IV norepinephrine -Saline lock IV -Discontinue IV vancomycin -IV Antibiotic Meropenem, levofloxacin ATRIAL FIBRILLATION WITH RAPID VENTRICULAR RESPONSE-remains in atrial fibrillation heart rate control has been relatively good over the last 24 hours -Continue oral metoprolol -Amiodarone 400 mg p.o. daily HYPOXIC RESPIRATORY FAILURE-resolved -Noninvasive positive pressure ventilation -Supplemental oxygen as needed ACUTE KIDNEY INJURY-secondary to sepsis, hypotension, and intravascular volume depletion. Creatinine has stabilized although remains elevated, urine output improved -Maintain adequate pressures -Closely monitor urine output and renal function TRANSAMINITIS-secondary to hypotension and sepsis -Reassess labs in a.m. HYPERKALEMIA-resolved -Reassess potassium in a.m. DELIRIUM-secondary to critical illness and lack of sleep -Melatonin 9 mg p.o. nightly -Haldol 1 mg IV every 2 hours as needed Maintenance issues -Nutrition: health heart diet -Franz catheter not indicated at this time -DVT: Xarelto -PPI; IV Protonix 40mg daily CODE STATUS: FULL Admission status: Admit to [address] [place] [address] Admission justification. This patient will be admitted for inpatient services and is medically appropriate meeting medical necessity for inpatient admission as outlined in my documentation. I reasonably expect the patient will require inpatient services that span. Time over 2 midnights. I reasonably expect this patient to be discharged or transferred within 96 hours after admission to the [facility]. Disposition: Assisted living home with Primary care provider: Hospitalist: Dr. Ambriz
[2020-05-11] MEDS: Lactobacillus Rhamnosus GG (Probiotic) Cap PO SCH ×2 (10:53→21:32)
[2020-05-11] MEDS ORDERED: Melatonin 3 MG Tab PO SCH (21:00)
[2020-05-11] MEDS: BIMATOPROST EYEBOTH SCH (21:31)
[2020-05-11] MEDS: Melatonin 3 MG Tab PO SCH (21:32)
[2020-05-11] MEDS: oxyCODONE 5 MG Tab PO PRN (23:33)
[2020-05-12] MEDS: Meropenem 500 MG in Sodium Chloride 0.9% 50 ML IV SCH (08:08)
[2020-05-12] MEDS: Brimonidine 0.2% Ophth Soln 5 ML Bottle EYEBOTH SCH ×2 (08:17→20:48)
[2020-05-12] MEDS: TIMOLOL MALEATE 0.5% EYEBOTH SCH ×2 (08:17→20:48)
[2020-05-12] MEDS: Dorzolamide 2% Ophth Soln 10 ML Bottle EYEBOTH SCH ×2 (08:17→20:49)
[2020-05-12] MEDS: oxyCODONE 5 MG Tab PO PRN (08:18)
[2020-05-12] MEDS: Acyclovir 200 MG Cap PO SCH (08:18)
[2020-05-12] MEDS: Lactobacillus Rhamnosus GG (Probiotic) Cap PO SCH ×2 (08:18→20:47)
[2020-05-12] MEDS: atorvaSTATin 20 MG Tab PO SCH (08:18)
[2020-05-12] MEDS: Apixaban 2.5 MG Tab PO SCH ×2 (08:18→20:48)
[2020-05-12] MEDS: Amiodarone 200 MG Tab PO SCH (08:19)
[2020-05-12] MEDS: Metoprolol Tartrate 50 MG Tab PO SCH ×2 (08:19→20:49)
--- NOTE | 2020-05-12 11:57 | PCM.PN ---
- General Info Date of Service: 05/12/20 Subjective Update: has shown further improvement over the last 24 hours. No significant temperature elevations and white blood cell count remains elevated but improved from the last 2 days. Urine output has been adequate, renal function stable with no significant improvement since yesterday, creatinine remains elevated at 3.2. Continues to experience difficulty with delirium and confusion. Heart rate has remained well controlled with current management. Respiratory status this morning stable. He is unable to provide a meaningful history concerning symptoms or review of systems. - Patient Data Vitals - Most Recent: Last Vital Signs Temp 97.5 F 05/12/20 08:00 Pulse 67 05/12/20 10:00 Resp 11 L 05/12/20 10:00 BP 137/69 05/12/20 10:00 Pulse Ox 96 05/12/20 10:00 Weight - Most Recent: 183 lb I&O - Last 24 Hours: Intake & Output 05/11/20 05/12/20 05/12/20 22:59 06:59 14:59 Intake Total 360 110 Output Total 250 475 Balance 110 -475 110 Lab Results Last 24 Hours: Laboratory Results - last 24 hr 05/12/20 05/12/20 Range/Units 04:45 04:45 WBC 24.8 H (4.5-11.0) K/uL RBC 3.84 L (4.30-5.90) M/uL Hgb 11.5 L (12.0-15.0) g/dL Hct 36.3 L (40.0-54.0) % MCV 95 (80-98) fL MCH 30 (27-31) pg MCHC 32 (32-36) % Plt Count 72 L (150-400) K/uL Neut % (Auto) 86 H (36-66) % Lymph % (Auto) 4 L (24-44) % Hooker % (Auto) 8 H (2-6) % Eos % (Auto) 2 (2-4) % Baso % (Auto) 0 (0-1) % Sodium 143 (140-148) mmol/L Potassium 4.5 (3.6-5.2) mmol/L Chloride 112 H (100-108) mmol/L Carbon Dioxide 20 L (21-32) mmol/L Anion Gap 15.5 H (5.0-14.0) mmol/L BUN 68 H (7-18) mg/dL Creatinine 3.1 H (0.8-1.3) mg/dL Est Cr Clr Drug Dosing 18.64 mL/min Estimated GFR (MDRD) 19 L (>60) Glucose 92 (74-106) mg/dL Calcium 8.2 L (8.5-10.1) mg/dL Total Bilirubin 0.8 (0.2-1.0) mg/dL AST 30 (15-37) U/L ALT 115 H (12-78) U/L Alkaline Phosphatase 188 H (46-116) U/L Total Protein 5.5 L (6.4-8.2) g/dL Albumin 2.3 L (3.4-5.0) g/dL Globulin 3.2 (2.3-3.5) g/dL Albumin/Globulin Ratio 0.7 L (1.2-2.2) Med Orders - Current: Current Medications Acetaminophen (Tylenol) 650 mg PO Q4H PRN PRN Reason: analgesia/fever Last Admin: 05/09/20 14:57 Dose: 650 mg Acyclovir (Zovirax) 800 mg PO DAILY [facility] Last Admin: 05/12/20 08:18 Dose: 800 mg Amiodarone HCl (Cordarone) 400 mg PO DAILY [facility] Last Admin: 05/12/20 08:19 Dose: 400 mg Apixaban (Eliquis) 2.5 mg PO BID [facility] Last Admin: 05/12/20 08:18 Dose: 2.5 mg Atorvastatin Calcium (Lipitor) 20 mg PO DAILY [facility] Last Admin: 05/12/20 08:18 Dose: 20 mg Brimonidine Tartrate (Alphagan 0.2% Ophth Soln) 0 ml EYEBOTH BID [facility] Last Admin: 05/12/20 08:17 Dose: 1 drop Docusate Sodium (Colace) 100 mg PO DAILY PRN PRN Reason: Constipation Dorzolamide HCl (Trusopt 2% Ophth Soln) 0 ml EYEBOTH BID [facility] Last Admin: 05/12/20 08:17 Dose: 1 drop Haloperidol Lactate (Haldol) 1 mg IVPUSH Q2H PRN PRN Reason: Agitation Hydromorphone HCl (Dilaudid) 0.5 mg IVPUSH Q2H PRN PRN Reason: Pain (severe 7-10) Last Admin: 05/10/20 12:06 Dose: 0.5 mg Levofloxacin/Dextrose 500 mg/ (Premix) 100 mls @ 100 mls/hr IV Q48H [facility] Last Admin: 05/11/20 09:50 Dose: 100 mls/hr Meropenem 500 mg/ Sodium (Chloride) 50 mls @ 100 mls/hr IV Q12H [facility] Last Admin: 05/12/20 08:08 Dose: 100 mls/hr Sodium Chloride (Normal Saline) 1,000 mls @ 100 mls/hr IV ASDIRECTED [facility] Lactobacillus Rhamnosus (Culturelle) 1 cap PO BID [facility] Last Admin: 05/12/20 08:18 Dose: 1 cap Melatonin (Melatonin) 9 mg PO BEDTIME [facility] Last Admin: 05/11/20 21:32 Dose: 9 mg Metoprolol Tartrate (Lopressor) 50 mg PO BID [facility] Last Admin: 05/12/20 08:19 Dose: 50 mg Bimatoprost (Lumigan 0.01% Ophth Soln) Pom 0 drop EYEBOTH BEDTIME [facility] Last Admin: 05/11/20 21:31 Dose: 1 drop Ondansetron HCl (Zofran) 4 mg IVPUSH Q4H PRN PRN Reason: Nausea/Vomiting Oxycodone HCl (Oxycodone) 10 mg PO Q4H PRN PRN Reason: Pain (moderate 4-6) Last Admin: 05/12/20 08:18 Dose: 10 mg Sodium Chloride (Saline Flush) 10 ml FLUSH ASDIRECTED PRN PRN Reason: Keep Vein Open Last Admin: 05/08/20 05:17 Dose: 10 ml Timolol Maleate (Timoptic 0.5% Ophth Soln) 0 ml EYEBOTH BID [facility] Last Admin: 05/12/20 08:17 Dose: 1 drop Discontinued Medications Acetaminophen (Tylenol) 650 mg PO NOW ONE Stop: 05/08/20 02:25 Last Admin: 05/08/20 02:33 Dose: 650 mg Amlodipine Besylate (Norvasc) 5 mg PO DAILY [facility] Last Admin: 05/08/20 10:23 Dose: Not Given Digoxin (Lanoxin) 250 mcg IVPUSH ONETIME ONE Stop: 05/08/20 13:01 Last Admin: 05/08/20 13:18 Dose: 250 mcg Digoxin (Lanoxin) 250 mcg IVPUSH ONETIME ONE Stop: 05/08/20 15:31 Last Admin: 05/08/20 15:33 Dose: 250 mcg Digoxin (Lanoxin) 250 mcg IVPUSH ONETIME ONE Stop: 05/10/20 15:31 Last Admin: 05/10/20 15:43 Dose: 250 mcg Diltiazem HCl (Diltiazem) 10 mg IVPUSH ONETIME ONE Stop: 05/08/20 21:37 Last Admin: 05/08/20 22:01 Dose: 10 mg Fluorometholone (Flarex 0.1% Ophth Susp) 0 ml EYERT Q48H [facility] Last Admin: 05/10/20 09:39 Dose: 1 drop Lactated Ringer's (Ringers, Lactated) 1,000 mls @ 999 mls/hr IV ASDIRECTED [facility] Last Infusion: 05/08/20 04:00 Dose: Infused Ceftriaxone Sodium 2 gm/ (Sodium Chloride) 50 mls @ 100 mls/hr IV ONETIME ONE Stop: 05/08/20 05:16 Last Admin: 05/08/20 05:16 Dose: 100 mls/hr Lactated Ringer's (Ringers, Lactated) 1,000 mls @ 500 mls/hr IV ASDIRECTED [facility] Stop: 05/08/20 05:59 Last Admin: 05/08/20 04:00 Dose: 500 mls/hr Meropenem 1 gm/ Sodium (Chloride) 100 mls @ 200 mls/hr IV Q8H [facility] Last Admin: 05/10/20 08:06 Dose: 200 mls/hr Sodium Chloride (Normal Saline) 1,000 mls @ 125 mls/hr IV ASDIRECTED [facility] Last Admin: 05/09/20 06:18 Dose: 125 mls/hr Lactated Ringer's (Ringers, Lactated) 1,000 mls @ 500 mls/hr IV ASDIRECTED [facility] Stop: 05/08/20 16:31 Last Admin: 05/08/20 14:52 Dose: 500 mls/hr Diltiazem HCl 100 mg/ Sodium (Chloride) 100 mls @ 5 mls/hr IV TITRATE [facility]; Protocol Last Titration: 05/08/20 22:20 Dose: 0 mg/hr, 0 mls/hr Levofloxacin/Dextrose 750 mg/ (Premix) 150 mls @ 100 mls/hr IV ONETIME ONE Stop: 05/09/20 11:29 Last Admin: 05/09/20 10:32 Dose: 100 mls/hr Vancomycin HCl 1.2 gm/ Sodium (Chloride) 250 mls @ 250 mls/hr IV ONETIME ONE Stop: 05/09/20 12:59 Last Admin: 05/09/20 12:30 Dose: 250 mls/hr Amiodarone HCl 450 mg/ (Dextrose/Water) 250 mls @ 33.33 mls/hr IV ASDIRECTED [facility]; Protocol Last Titration: 05/09/20 18:26 Dose: 0.49 mg/min, 16.6 mls/hr Norepinephrine Bitartrate 4 mg (/ Dextrose/Water) 250 mls @ 7.5 mls/hr IV TITRATE [facility]; Protocol Last Titration: 05/09/20 19:39 Dose: 2 mcg/min, 7.5 mls/hr Amiodarone HCl 150 mg/ (Dextrose/Water) 103 mls @ 618 mls/hr IV ONETIME ONE Stop: 05/09/20 10:39 Last Admin: 05/09/20 10:30 Dose: 618 mls/hr Sodium Chloride (Normal Saline) 1,000 mls @ 50 mls/hr IV ASDIRECTED [facility] Last Admin: 05/09/20 17:57 Dose: 50 mls/hr Magnesium Sulfate 2 gm/ Premix 50 mls @ 25 mls/hr IV Q6H [facility] Stop: 05/10/20 23:59 Last Admin: 05/10/20 22:27 Dose: 25 mls/hr Ibuprofen (Motrin) 400 mg PO Q6H PRN PRN Reason: Fever Lorazepam (Ativan) 0.5 mg IVPUSH Q2H PRN PRN Reason: Anxiety Last Admin: 05/10/20 22:35 Dose: 0.5 mg Melatonin (Melatonin) 9 mg PO BEDTIME [facility] Metoprolol Tartrate (Lopressor) 50 mg PO BID [facility] Last Admin: 05/09/20 08:01 Dose: 50 mg Metoprolol Tartrate (Lopressor) 25 mg PO BID [facility] Last Admin: 05/09/20 21:37 Dose: 25 mg Ondansetron HCl (Zofran) 4 mg IVPUSH ONETIME ONE Stop: 05/08/20 02:25 Last Admin: 05/08/20 02:33 Dose: 4 mg Oxycodone HCl (Oxycodone) 5 mg PO Q4H PRN PRN Reason: Pain Last Admin: 05/10/20 05:10 Dose: 5 mg Prednisolone Acetate (Pred Forte 1% Ophth Susp) 0 ml EYERT DAILY [facility] Sodium Polystyrene Sulfonate (Kayexalate) 30 gm PO ONETIME ONE Stop: 05/09/20 10:16 Last Admin: 05/09/20 11:02 Dose: 30 gm - Exam Quality Assessment: DVT Prophylaxis General: Cooperative, Moderate Distress, Lethargic Lungs: Clear to Auscultation, Normal Respiratory Effort Cardiovascular: Regular Rate, No Murmurs, Irregular Rhythm GI/Abdominal Exam: Soft, Non-Tender, No Organomegaly, No Distention Extremities: Non-Tender, Pedal Edema Skin: Warm, Dry, Intact Sepsis Event Note - Evaluation Sepsis Screening Result: No Definite Risk - Focused Exam Vital Signs: Vital Signs Temp Pulse Pulse Resp BP BP Pulse Ox 05/12/20 10:00 67 11 L 137/69 96 05/12/20 09:00 67 12 129/68 96 05/12/20 08:19 76 126/62 05/12/20 08:00 97.5 F 76 17 126/62 99 05/12/20 07:00 71 12 98/48 L 96 05/12/20 06:00 97.1 F 74 14 112/47 L 96 05/12/20 05:00 77 15 116/69 96 05/12/20 04:00 85 22 H 135/71 96 05/12/20 03:00 83 22 H 125/69 96 05/12/20 02:00 80 17 113/80 05/12/20 01:00 79 16 120/72 93 L 05/12/20 00:00 96.8 F L 82 16 130/70 93 L Date Exam was Performed: 05/12/20 Time Exam was Performed: 11:53 - Problem List Review Problem List Initiated/Reviewed/Updated: Yes - My Orders Last 24 Hours: My Active Orders 05/12/20 12:00 Sodium Chloride 0.9% @ 100 MLS/HR(1000ml) Sodium Chloride 0.9% [Normal Saline] 1 ,000 ml IV ASDIRECTED 05/13/20 05:00 CBC WITH AUTO DIFF [HEME] Timed COMPREHENSIVE METABOLIC PN,CMP [CHEM] Timed - Plan Plan:: ASSESSMENT / PLAN SEPTIC SHOCK- secondary to Urinary Tract Infection, associated with significant multiple organ dysfunction including hypoxia, acute kidney injury, atrial fibrillation with rapid ventricular response, hyperkalemia, and elevation in liver enzymes. Blood cultures and urine culture growing Klebsiella which is found to be pansensitive. Pressure has stabilized, no longer requiring IV norepinephrine -Saline lock IV -Discontinue IV meropenem -IV Antibiotic levofloxacin ATRIAL FIBRILLATION WITH RAPID VENTRICULAR RESPONSE-remains in atrial fibrillation, rate control has been relatively good over the last 24 hours -Continue oral metoprolol -Amiodarone 400 mg p.o. daily HYPOXIC RESPIRATORY FAILURE-resolved -Noninvasive positive pressure ventilation as needed -Supplemental oxygen as needed ACUTE KIDNEY INJURY-secondary to sepsis, hypotension, and intravascular volume depletion. Creatinine has stabilized although remains elevated, urine output improved -Maintain adequate pressures -Closely monitor urine output and renal function TRANSAMINITIS-secondary to hypotension and sepsis -Reassess labs in a.m. HYPERKALEMIA-resolved -Reassess potassium in a.m. DELIRIUM-secondary to critical illness and lack of sleep -Melatonin 9 mg p.o. nightly -Haldol 1 mg IV every 2 hours as needed Maintenance issues -Nutrition: health heart diet -Franz catheter not indicated at this time -DVT: Xarelto -PPI; IV Protonix 40mg daily CODE STATUS: FULL Admission status: Admit to [address] [place] [id number] justification. This patient will be admitted for inpatient services and is medically appropriate meeting medical necessity for inpatient admission as outlined in my documentation. I reasonably expect the patient will require inpatient services that span. Time over 2 midnights. I reasonably expect this patient to be discharged or transferred within 96 hours after admission to the [facility]. Disposition: Assisted living home with Primary care provider: Hospitalist: Dr. Ambriz
[2020-05-12] MEDS: Sodium Chloride 0.9% 1,000 ML IV SCH (14:47)
[2020-05-12] MEDS ORDERED: Lidocaine 2% Jelly 10 ML Urojet MUCMEM ONE (17:47)
[2020-05-12] MEDS: Melatonin 3 MG Tab PO SCH (20:48)
[2020-05-12] MEDS: BIMATOPROST EYEBOTH SCH (20:49)
[2020-05-13] MEDS: Sodium Chloride 0.9% 1,000 ML IV SCH ×2 (00:47→09:51)
[2020-05-13] MEDS: Brimonidine 0.2% Ophth Soln 5 ML Bottle EYEBOTH SCH ×2 (09:00→21:06)
[2020-05-13] MEDS: Metoprolol Tartrate 50 MG Tab PO SCH ×2 (09:01→22:05)
[2020-05-13] MEDS: Lactobacillus Rhamnosus GG (Probiotic) Cap PO SCH ×2 (09:02→21:07)
[2020-05-13] MEDS: Amiodarone 200 MG Tab PO SCH (09:03)
[2020-05-13] MEDS: Acyclovir 200 MG Cap PO SCH (09:03)
[2020-05-13] MEDS: Apixaban 2.5 MG Tab PO SCH ×2 (09:03→21:07)
[2020-05-13] MEDS: TIMOLOL MALEATE 0.5% EYEBOTH SCH ×2 (09:03→21:07)
[2020-05-13] MEDS: atorvaSTATin 20 MG Tab PO SCH (09:03)
[2020-05-13] MEDS: Dorzolamide 2% Ophth Soln 10 ML Bottle EYEBOTH SCH ×2 (09:04→21:07)
[2020-05-13] MEDS: Levofloxacin/Dextrose 5%-Water 500 MG in Premix Bag 1 BAG IV SCH (09:42)
--- NOTE | 2020-05-13 10:28 | PCM.PN ---
- General Info Date of Service: 05/13/20 Subjective Update: There were no acute events overnight. Vital signs have been stable. Patient is more alert and interactive today. No issues with agitation. No fevers. White blood cell count is improving. Kidney function is improving. He is quite weak at this time and requires the assist of 2 to get from the bed to the chair. No complaints of abdominal pain. Functional Status: Reports: Pain Controlled, Tolerating Diet - Review of Systems General: Reports: Weakness. Denies: Fever - Patient Data Vitals - Most Recent: Last Vital Signs Temp 37.1 C 05/13/20 08:00 Pulse 78 05/13/20 09:01 Resp 20 05/13/20 10:00 BP 123/77 05/13/20 10:00 Pulse Ox 95 05/13/20 10:00 Weight - Most Recent: 83.007 kg I&O - Last 24 Hours: Intake & Output 05/12/20 05/13/20 05/13/20 22:59 06:59 14:59 Intake Total 240 1228 Output Total 675 700 Balance -435 528 Lab Results Last 24 Hours: Laboratory Results - last 24 hr 05/13/20 05/13/20 Range/Units 05:00 05:00 WBC 17.1 H (4.5-11.0) K/uL RBC 3.80 L (4.30-5.90) M/uL Hgb 11.5 L (12.0-15.0) g/dL Hct 35.9 L (40.0-54.0) % MCV 95 (80-98) fL MCH 30 (27-31) pg MCHC 32 (32-36) % Plt Count 85 L (150-400) K/uL Neut % (Auto) 76 H (36-66) % Lymph % (Auto) 8 L (24-44) % Rolette % (Auto) 13 H (2-6) % Eos % (Auto) 3 (2-4) % Baso % (Auto) 0 (0-1) % Sodium 148 (140-148) mmol/L Potassium 4.3 (3.6-5.2) mmol/L Chloride 117 H (100-108) mmol/L Carbon Dioxide 22 (21-32) mmol/L Anion Gap 13.3 (5.0-14.0) mmol/L BUN 64 H (7-18) mg/dL Creatinine 2.4 H (0.8-1.3) mg/dL Est Cr Clr Drug Dosing 24.08 mL/min Estimated GFR (MDRD) 26 L (>60) Glucose 99 (74-106) mg/dL Calcium 7.8 L (8.5-10.1) mg/dL Total Bilirubin 0.7 (0.2-1.0) mg/dL AST 23 (15-37) U/L ALT 82 H (12-78) U/L Alkaline Phosphatase 162 H (46-116) U/L Total Protein 5.1 L (6.4-8.2) g/dL Albumin 2.1 L (3.4-5.0) g/dL Globulin 3.0 (2.3-3.5) g/dL Albumin/Globulin Ratio 0.7 L (1.2-2.2) Med Orders - Current: Current Medications Acetaminophen (Tylenol) 650 mg PO Q4H PRN PRN Reason: analgesia/fever Last Admin: 05/09/20 14:57 Dose: 650 mg Acyclovir (Zovirax) 800 mg PO DAILY [facility] Last Admin: 05/13/20 09:03 Dose: 800 mg Amiodarone HCl (Cordarone) 400 mg PO DAILY [facility] Last Admin: 05/13/20 09:03 Dose: 400 mg Apixaban (Eliquis) 2.5 mg PO BID [facility] Last Admin: 05/13/20 09:03 Dose: 2.5 mg Atorvastatin Calcium (Lipitor) 20 mg PO DAILY [facility] Last Admin: 05/13/20 09:03 Dose: 20 mg Brimonidine Tartrate (Alphagan 0.2% Ophth Soln) 0 ml EYEBOTH BID [facility] Last Admin: 05/13/20 09:00 Dose: 1 drop Docusate Sodium (Colace) 100 mg PO DAILY PRN PRN Reason: Constipation Dorzolamide HCl (Trusopt 2% Ophth Soln) 0 ml EYEBOTH BID [facility] Last Admin: 05/13/20 09:04 Dose: 1 drop Haloperidol Lactate (Haldol) 1 mg IVPUSH Q2H PRN PRN Reason: Agitation Hydromorphone HCl (Dilaudid) 0.5 mg IVPUSH Q2H PRN PRN Reason: Pain (severe 7-10) Last Admin: 05/10/20 12:06 Dose: 0.5 mg Levofloxacin/Dextrose 500 mg/ (Premix) 100 mls @ 100 mls/hr IV Q48H [facility] Last Admin: 05/13/20 09:42 Dose: 100 mls/hr Lactobacillus Rhamnosus (Culturelle) 1 cap PO BID [facility] Last Admin: 05/13/20 09:02 Dose: 1 cap Melatonin (Melatonin) 9 mg PO BEDTIME [facility] Last Admin: 05/12/20 20:48 Dose: 9 mg Metoprolol Tartrate (Lopressor) 50 mg PO BID [facility] Last Admin: 05/13/20 09:01 Dose: 50 mg Bimatoprost (Lumigan 0.01% Ophth Soln) Pom 0 drop EYEBOTH BEDTIME [facility] Last Admin: 05/12/20 20:49 Dose: 1 drop Ondansetron HCl (Zofran) 4 mg IVPUSH Q4H PRN PRN Reason: Nausea/Vomiting Oxycodone HCl (Oxycodone) 10 mg PO Q4H PRN PRN Reason: Pain (moderate 4-6) Last Admin: 05/12/20 08:18 Dose: 10 mg Sodium Chloride (Saline Flush) 10 ml FLUSH ASDIRECTED PRN PRN Reason: Keep Vein Open Last Admin: 05/08/20 05:17 Dose: 10 ml Timolol Maleate (Timoptic 0.5% Ophth Soln) 0 ml EYEBOTH BID [facility] Last Admin: 05/13/20 09:03 Dose: 1 drop Discontinued Medications Acetaminophen (Tylenol) 650 mg PO NOW ONE Stop: 05/08/20 02:25 Last Admin: 05/08/20 02:33 Dose: 650 mg Amlodipine Besylate (Norvasc) 5 mg PO DAILY [facility] Last Admin: 05/08/20 10:23 Dose: Not Given Digoxin (Lanoxin) 250 mcg IVPUSH ONETIME ONE Stop: 05/08/20 13:01 Last Admin: 05/08/20 13:18 Dose: 250 mcg Digoxin (Lanoxin) 250 mcg IVPUSH ONETIME ONE Stop: 05/08/20 15:31 Last Admin: 05/08/20 15:33 Dose: 250 mcg Digoxin (Lanoxin) 250 mcg IVPUSH ONETIME ONE Stop: 06/12/20 15:31 Last Admin: 05/10/20 15:43 Dose: 250 mcg Diltiazem HCl (Diltiazem) 10 mg IVPUSH ONETIME ONE Stop: 05/08/20 21:37 Last Admin: 05/08/20 22:01 Dose: 10 mg Fluorometholone (Flarex 0.1% Ophth Susp) 0 ml EYERT Q48H [facility] Last Admin: 05/10/20 09:39 Dose: 1 drop Lactated Ringer's (Ringers, Lactated) 1,000 mls @ 999 mls/hr IV ASDIRECTED [facility] Last Infusion: 05/08/20 04:00 Dose: Infused Ceftriaxone Sodium 2 gm/ (Sodium Chloride) 50 mls @ 100 mls/hr IV ONETIME ONE Stop: 05/08/20 05:16 Last Admin: 05/08/20 05:16 Dose: 100 mls/hr Lactated Ringer's (Ringers, Lactated) 1,000 mls @ 500 mls/hr IV ASDIRECTED [facility] Stop: 05/08/20 05:59 Last Admin: 05/08/20 04:00 Dose: 500 mls/hr Meropenem 1 gm/ Sodium (Chloride) 100 mls @ 200 mls/hr IV Q8H [facility] Last Admin: 05/10/20 08:06 Dose: 200 mls/hr Sodium Chloride (Normal Saline) 1,000 mls @ 125 mls/hr IV ASDIRECTED [facility] Last Admin: 05/09/20 06:18 Dose: 125 mls/hr Lactated Ringer's (Ringers, Lactated) 1,000 mls @ 500 mls/hr IV ASDIRECTED [facility] Stop: 05/08/20 16:31 Last Admin: 05/08/20 14:52 Dose: 500 mls/hr Diltiazem HCl 100 mg/ Sodium (Chloride) 100 mls @ 5 mls/hr IV TITRATE [facility]; Protocol Last Titration: 05/08/20 22:20 Dose: 0 mg/hr, 0 mls/hr Levofloxacin/Dextrose 750 mg/ (Premix) 150 mls @ 100 mls/hr IV ONETIME ONE Stop: 05/09/20 11:29 Last Admin: 05/09/20 10:32 Dose: 100 mls/hr Vancomycin HCl 1.2 gm/ Sodium (Chloride) 250 mls @ 250 mls/hr IV ONETIME ONE Stop: 05/09/20 12:59 Last Admin: 05/09/20 12:30 Dose: 250 mls/hr Amiodarone HCl 450 mg/ (Dextrose/Water) 250 mls @ 33.33 mls/hr IV ASDIRECTED [facility]; Protocol Last Titration: 05/09/20 18:26 Dose: 0.49 mg/min, 16.6 mls/hr Norepinephrine Bitartrate 4 mg (/ Dextrose/Water) 250 mls @ 7.5 mls/hr IV TITRATE [facility]; Protocol Last Titration: 05/09/20 19:39 Dose: 2 mcg/min, 7.5 mls/hr Amiodarone HCl 150 mg/ (Dextrose/Water) 103 mls @ 618 mls/hr IV ONETIME ONE Stop: 05/09/20 10:39 Last Admin: 05/09/20 10:30 Dose: 618 mls/hr Sodium Chloride (Normal Saline) 1,000 mls @ 50 mls/hr IV ASDIRECTED [facility] Last Admin: 05/09/20 17:57 Dose: 50 mls/hr Magnesium Sulfate 2 gm/ Premix 50 mls @ 25 mls/hr IV Q6H [facility] Stop: 05/10/20 23:59 Last Admin: 05/10/20 22:27 Dose: 25 mls/hr Meropenem 500 mg/ Sodium (Chloride) 50 mls @ 100 mls/hr IV Q12H [facility] Last Admin: 05/12/20 08:08 Dose: 100 mls/hr Sodium Chloride (Normal Saline) 1,000 mls @ 100 mls/hr IV ASDIRECTED [facility] Last Admin: 05/13/20 09:51 Dose: 100 mls/hr Ibuprofen (Motrin) 400 mg PO Q6H PRN PRN Reason: Fever Lidocaine HCl (Xylocaine 2% Jelly) 10 ml MUCMEM ONETIME ONE Stop: 05/12/20 17:48 Last Admin: 05/12/20 18:21 Dose: 10 ml Lorazepam (Ativan) 0.5 mg IVPUSH Q2H PRN PRN Reason: Anxiety Last Admin: 05/10/20 22:35 Dose: 0.5 mg Melatonin (Melatonin) 9 mg PO BEDTIME [facility] Metoprolol Tartrate (Lopressor) 50 mg PO BID [facility] Last Admin: 05/09/20 08:01 Dose: 50 mg Metoprolol Tartrate (Lopressor) 25 mg PO BID [facility] Last Admin: 05/09/20 21:37 Dose: 25 mg Ondansetron HCl (Zofran) 4 mg IVPUSH ONETIME ONE Stop: 05/08/20 02:25 Last Admin: 05/08/20 02:33 Dose: 4 mg Oxycodone HCl (Oxycodone) 5 mg PO Q4H PRN PRN Reason: Pain Last Admin: 05/10/20 05:10 Dose: 5 mg Prednisolone Acetate (Pred Forte 1% Ophth Susp) 0 ml EYERT DAILY [facility] Sodium Polystyrene Sulfonate (Kayexalate) 30 gm PO ONETIME ONE Stop: 05/09/20 10:16 Last Admin: 05/09/20 11:02 Dose: 30 gm - Exam Quality Assessment: No: Supplemental Oxygen General: Alert, Oriented, Cooperative, No Acute Distress Lungs: Clear to Auscultation, Normal Respiratory Effort Cardiovascular: Regular Rate, Irregular Rhythm GI/Abdominal Exam: Normal Bowel Sounds, Soft, No Distention Extremities: No Pedal Edema. No: Increased Warmth Skin: Warm, Dry Psy/Mental Status: Alert, Normal Affect. No: Agitated Sepsis Event Note - Evaluation Sepsis Screening Result: No Definite Risk - Focused Exam Vital Signs: Vital Signs Temp Pulse Pulse Resp BP BP Pulse Ox 05/13/20 10:00 20 123/77 95 05/13/20 09:01 78 124/79 05/13/20 08:00 37.1 C 12 127/79 96 05/13/20 06:00 71 16 103/62 96 05/13/20 05:00 75 12 118/70 94 L 05/13/20 04:00 79 13 116/54 L 95 05/13/20 03:00 85 22 H 120/70 94 L 05/13/20 02:00 76 15 120/80 95 05/13/20 01:00 73 19 123/70 95 05/13/20 00:00 36.8 C 94 22 H 129/74 96 05/12/20 23:00 90 18 113/68 94 L Date Exam was Performed: 05/13/20 Time Exam was Performed: 12:43 - Problem List Review Problem List Initiated/Reviewed/Updated: Yes - My Orders Last 24 Hours: My Active Orders 05/13/20 10:24 Convert IV to Saline Lock [OM.PC] Routine 05/13/20 10:25 PT Evaluation and Treatment [CONS] Routine 05/13/20 10:26 Transfer Patient (Change bed) [ADT] Routine 05/13/20 10:27 Discontinue Telemetry Monitoring [Cardiac Monitoring Discontinue] [RC] Click to Edit 05/14/20 05:00 BASIC METABOLIC PANEL,BMP [CHEM] Timed CBC W/O DIFF,HEMOGRAM [HEME] Timed (1) - Plan Plan:: ASSESSMENT / PLAN URINARY TRACT INFECTION WITH SEPTIC SHOCK-Blood cultures and urine culture growing Klebsiella which is found to be pansensitive. Septic shock has resolved. White blood cell count improving. Kidney function improving. He is quite weak but otherwise improving. -Saline lock IV -IV Antibiotic levofloxacin -Initiate physical therapy ATRIAL FIBRILLATION WITH RAPID VENTRICULAR RESPONSE-remains in atrial fibrillation but rate control has been excellent. -Continue oral metoprolol -Amiodarone 400 mg p.o. daily HYPOXIC RESPIRATORY FAILURE-resolved -Supplemental oxygen as needed ACUTE KIDNEY INJURY-secondary to sepsis, hypotension, and intravascular volume depletion. Creatinine has started to improve. -Closely monitor urine output and renal function TRANSAMINITIS-secondary to hypotension and sepsis. Levels are improving. HYPERKALEMIA-resolved -Reassess potassium in a.m. DELIRIUM-secondary to critical illness and lack of sleep. Much improved. -Melatonin 9 mg p.o. nightly Maintenance issues -Nutrition: health heart diet -Franz catheter not indicated at this time -DVT: Apixaban -GI; PPI Disposition: Assisted living home with . He is stable enough for transfer out of the intensive care unit at this time. Ran Willard MD
[2020-05-13] MEDS: BIMATOPROST EYEBOTH SCH (21:06)
[2020-05-13] MEDS: Melatonin 3 MG Tab PO SCH (21:06)
--- NOTE | 2020-05-14 08:07 | PCM.PN ---
- General Info Date of Service: 05/14/20 Subjective Update: No acute events overnight. No fevers. Patient did report that he is having some nightmares and did not rest peacefully. He has mild and stable chronic back and neck pain. No complaints of abdominal pain. He still feels very weak. Kidney function and white blood cell count are stable today compared to yesterday. Functional Status: Reports: Pain Controlled, Tolerating Diet - Review of Systems General: Reports: Weakness. Denies: Fever - Patient Data Vitals - Most Recent: Last Vital Signs Temp 36.3 C 05/14/20 08:00 Pulse 86 05/14/20 08:00 Resp 16 05/14/20 08:00 BP 158/87 H 05/14/20 08:00 Pulse Ox 94 L 05/14/20 08:00 Weight - Most Recent: 83.007 kg I&O - Last 24 Hours: Intake & Output 05/13/20 05/14/20 05/14/20 22:59 06:59 14:59 Output Total 890 135 Balance -890 -135 Lab Results Last 24 Hours: Laboratory Results - last 24 hr 05/14/20 05/14/20 Range/Units 05:00 05:00 WBC 17.3 H (4.5-11.0) K/uL RBC 3.97 L (4.30-5.90) M/uL Hgb 11.9 L (12.0-15.0) g/dL Hct 36.9 L (40.0-54.0) % MCV 93 (80-98) fL MCH 30 (27-31) pg MCHC 32 (32-36) % Plt Count 104 L (150-400) K/uL Sodium 148 (140-148) mmol/L Potassium 4.1 (3.6-5.2) mmol/L Chloride 116 H (100-108) mmol/L Carbon Dioxide 20 L (21-32) mmol/L Anion Gap 16.1 H (5.0-14.0) mmol/L BUN 59 H (7-18) mg/dL Creatinine 2.4 H (0.8-1.3) mg/dL Est Cr Clr Drug Dosing 24.08 mL/min Estimated GFR (MDRD) 26 L (>60) Glucose 120 H (74-106) mg/dL Calcium 7.9 L (8.5-10.1) mg/dL Med Orders - Current: Current Medications Acetaminophen (Tylenol) 650 mg PO Q4H PRN PRN Reason: analgesia/fever Last Admin: 05/09/20 14:57 Dose: 650 mg Acyclovir (Zovirax) 800 mg PO DAILY [facility] Last Admin: 05/13/20 09:03 Dose: 800 mg Amiodarone HCl (Cordarone) 400 mg PO DAILY [facility] Last Admin: 05/13/20 09:03 Dose: 400 mg Apixaban (Eliquis) 2.5 mg PO BID [facility] Last Admin: 05/13/20 21:07 Dose: 2.5 mg Atorvastatin Calcium (Lipitor) 20 mg PO DAILY [facility] Last Admin: 05/13/20 09:03 Dose: 20 mg Brimonidine Tartrate (Alphagan 0.2% Ophth Soln) 0 ml EYEBOTH BID [facility] Last Admin: 05/13/20 21:06 Dose: 1 drop Docusate Sodium (Colace) 100 mg PO DAILY PRN PRN Reason: Constipation Dorzolamide HCl (Trusopt 2% Ophth Soln) 0 ml EYEBOTH BID [facility] Last Admin: 05/13/20 21:07 Dose: 1 drop Haloperidol Lactate (Haldol) 1 mg IVPUSH Q2H PRN PRN Reason: Agitation Hydromorphone HCl (Dilaudid) 0.5 mg IVPUSH Q2H PRN PRN Reason: Pain (severe 7-10) Last Admin: 05/10/20 12:06 Dose: 0.5 mg Levofloxacin/Dextrose 500 mg/ (Premix) 100 mls @ 100 mls/hr IV Q48H [facility] Last Admin: 05/13/20 09:42 Dose: 100 mls/hr Lactobacillus Rhamnosus (Culturelle) 1 cap PO BID [facility] Last Admin: 05/13/20 21:07 Dose: 1 cap Melatonin (Melatonin) 9 mg PO BEDTIME [facility] Last Admin: 05/13/20 21:06 Dose: 9 mg Metoprolol Tartrate (Lopressor) 50 mg PO BID [facility] Last Admin: 05/13/20 22:05 Dose: 50 mg Bimatoprost (Lumigan 0.01% Ophth Soln) Pom 0 drop EYEBOTH BEDTIME [facility] Last Admin: 06/15/20 21:06 Dose: 1 drop Ondansetron HCl (Zofran) 4 mg IVPUSH Q4H PRN PRN Reason: Nausea/Vomiting Oxycodone HCl (Oxycodone) 10 mg PO Q4H PRN PRN Reason: Pain (moderate 4-6) Last Admin: 05/12/20 08:18 Dose: 10 mg Sodium Chloride (Saline Flush) 10 ml FLUSH ASDIRECTED PRN PRN Reason: Keep Vein Open Last Admin: 05/08/20 05:17 Dose: 10 ml Timolol Maleate (Timoptic 0.5% Ophth Soln) 0 ml EYEBOTH BID [facility] Last Admin: 05/13/20 21:07 Dose: 1 drop Discontinued Medications Acetaminophen (Tylenol) 650 mg PO NOW ONE Stop: 05/08/20 02:25 Last Admin: 05/08/20 02:33 Dose: 650 mg Amlodipine Besylate (Norvasc) 5 mg PO DAILY [facility] Last Admin: 05/08/20 10:23 Dose: Not Given Digoxin (Lanoxin) 250 mcg IVPUSH ONETIME ONE Stop: 05/08/20 13:01 Last Admin: 05/08/20 13:18 Dose: 250 mcg Digoxin (Lanoxin) 250 mcg IVPUSH ONETIME ONE Stop: 05/08/20 15:31 Last Admin: 05/08/20 15:33 Dose: 250 mcg Digoxin (Lanoxin) 250 mcg IVPUSH ONETIME ONE Stop: 05/10/20 15:31 Last Admin: 05/10/20 15:43 Dose: 250 mcg Diltiazem HCl (Diltiazem) 10 mg IVPUSH ONETIME ONE Stop: 05/08/20 21:37 Last Admin: 05/08/20 22:01 Dose: 10 mg Fluorometholone (Flarex 0.1% Ophth Susp) 0 ml EYERT Q48H [facility] Last Admin: 05/10/20 09:39 Dose: 1 drop Lactated Ringer's (Ringers, Lactated) 1,000 mls @ 999 mls/hr IV ASDIRECTED [facility] Last Infusion: 05/08/20 04:00 Dose: Infused Ceftriaxone Sodium 2 gm/ (Sodium Chloride) 50 mls @ 100 mls/hr IV ONETIME ONE Stop: 05/08/20 05:16 Last Admin: 05/08/20 05:16 Dose: 100 mls/hr Lactated Ringer's (Ringers, Lactated) 1,000 mls @ 500 mls/hr IV ASDIRECTED [facility] Stop: 05/08/20 05:59 Last Admin: 05/08/20 04:00 Dose: 500 mls/hr Meropenem 1 gm/ Sodium (Chloride) 100 mls @ 200 mls/hr IV Q8H [facility] Last Admin: 05/10/20 08:06 Dose: 200 mls/hr Sodium Chloride (Normal Saline) 1,000 mls @ 125 mls/hr IV ASDIRECTED [facility] Last Admin: 05/09/20 06:18 Dose: 125 mls/hr Lactated Ringer's (Ringers, Lactated) 1,000 mls @ 500 mls/hr IV ASDIRECTED [facility] Stop: 05/08/20 16:31 Last Admin: 05/08/20 14:52 Dose: 500 mls/hr Diltiazem HCl 100 mg/ Sodium (Chloride) 100 mls @ 5 mls/hr IV TITRATE [facility]; Protocol Last Titration: 05/08/20 22:20 Dose: 0 mg/hr, 0 mls/hr Levofloxacin/Dextrose 750 mg/ (Premix) 150 mls @ 100 mls/hr IV ONETIME ONE Stop: 05/09/20 11:29 Last Admin: 05/09/20 10:32 Dose: 100 mls/hr Vancomycin HCl 1.2 gm/ Sodium (Chloride) 250 mls @ 250 mls/hr IV ONETIME ONE Stop: 05/09/20 12:59 Last Admin: 05/09/20 12:30 Dose: 250 mls/hr Amiodarone HCl 450 mg/ (Dextrose/Water) 250 mls @ 33.33 mls/hr IV ASDIRECTED [facility]; Protocol Last Titration: 05/09/20 18:26 Dose: 0.49 mg/min, 16.6 mls/hr Norepinephrine Bitartrate 4 mg (/ Dextrose/Water) 250 mls @ 7.5 mls/hr IV TITRATE [facility]; Protocol Last Titration: 05/09/20 19:39 Dose: 2 mcg/min, 7.5 mls/hr Amiodarone HCl 150 mg/ (Dextrose/Water) 103 mls @ 618 mls/hr IV ONETIME ONE Stop: 05/09/20 10:39 Last Admin: 05/09/20 10:30 Dose: 618 mls/hr Sodium Chloride (Normal Saline) 1,000 mls @ 50 mls/hr IV ASDIRECTED [facility] Last Admin: 05/09/20 17:57 Dose: 50 mls/hr Magnesium Sulfate 2 gm/ Premix 50 mls @ 25 mls/hr IV Q6H [facility] Stop: 05/10/20 23:59 Last Admin: 05/10/20 22:27 Dose: 25 mls/hr Meropenem 500 mg/ Sodium (Chloride) 50 mls @ 100 mls/hr IV Q12H [facility] Last Admin: 05/12/20 08:08 Dose: 100 mls/hr Sodium Chloride (Normal Saline) 1,000 mls @ 100 mls/hr IV ASDIRECTED [facility] Last Admin: 05/13/20 09:51 Dose: 100 mls/hr Ibuprofen (Motrin) 400 mg PO Q6H PRN PRN Reason: Fever Lidocaine HCl (Xylocaine 2% Jelly) 10 ml MUCMEM ONETIME ONE Stop: 05/12/20 17:48 Last Admin: 05/12/20 18:21 Dose: 10 ml Lorazepam (Ativan) 0.5 mg IVPUSH Q2H PRN PRN Reason: Anxiety Last Admin: 05/10/20 22:35 Dose: 0.5 mg Melatonin (Melatonin) 9 mg PO BEDTIME [facility] Metoprolol Tartrate (Lopressor) 50 mg PO BID [facility] Last Admin: 05/09/20 08:01 Dose: 50 mg Metoprolol Tartrate (Lopressor) 25 mg PO BID [facility] Last Admin: 05/09/20 21:37 Dose: 25 mg Ondansetron HCl (Zofran) 4 mg IVPUSH ONETIME ONE Stop: 05/08/20 02:25 Last Admin: 05/08/20 02:33 Dose: 4 mg Oxycodone HCl (Oxycodone) 5 mg PO Q4H PRN PRN Reason: Pain Last Admin: 05/10/20 05:10 Dose: 5 mg Prednisolone Acetate (Pred Forte 1% Ophth Susp) 0 ml EYERT DAILY [facility] Sodium Polystyrene Sulfonate (Kayexalate) 30 gm PO ONETIME ONE Stop: 05/09/20 10:16 Last Admin: 05/09/20 11:02 Dose: 30 gm - Exam Quality Assessment: No: Supplemental Oxygen General: Alert, Cooperative, No Acute Distress Lungs: Clear to Auscultation, Normal Respiratory Effort Cardiovascular: Regular Rate, Irregular Rhythm GI/Abdominal Exam: Normal Bowel Sounds, Soft, No Distention Extremities: No Pedal Edema. No: Increased Warmth Skin: Warm, Dry Psy/Mental Status: Alert, Normal Affect Sepsis Event Note - Evaluation Sepsis Screening Result: No Definite Risk - Focused Exam Vital Signs: Vital Signs Temp Pulse Pulse Resp BP BP Pulse Ox 05/14/20 08:00 36.3 C 86 16 158/87 H 94 L 05/14/20 04:37 85 17 139/75 96 05/13/20 23:00 36.3 C 89 20 146/82 H 97 05/13/20 22:05 89 121/74 Date Exam was Performed: 05/14/20 Time Exam was Performed: 10:20 - Problem List Review Problem List Initiated/Reviewed/Updated: Yes - My Orders Last 24 Hours: My Active Orders 05/13/20 10:24 Convert IV to Saline Lock [OM.PC] Routine 05/13/20 10:25 PT Evaluation and Treatment [CONS] Routine 05/13/20 10:26 Transfer Patient (Change bed) [ADT] Routine 05/15/20 05:00 BASIC METABOLIC PANEL,BMP [CHEM] Timed CBC W/O DIFF,HEMOGRAM [HEME] Timed (1) - Plan Plan:: ASSESSMENT / PLAN URINARY TRACT INFECTION WITH SEPTIC SHOCK-Blood cultures and urine culture growing Klebsiella which is found to be pansensitive. Septic shock has resolved. White blood cell count are stable compared to yesterday but not back to baseline. He is quite weak but otherwise improving. -Saline lock IV -IV Antibiotic levofloxacin -physical therapy ATRIAL FIBRILLATION WITH RAPID VENTRICULAR RESPONSE-remains in atrial fibrillation but rate control has been excellent. -Continue oral metoprolol -Amiodarone 400 mg p.o. daily -Continue anticoagulation HYPOXIC RESPIRATORY FAILURE-resolved -Supplemental oxygen as needed ACUTE KIDNEY INJURY-secondary to sepsis, hypotension, and intravascular volume depletion. Creatinine has improved over the past several days but stable compared to yesterday. -Closely monitor urine output and renal function TRANSAMINITIS-secondary to hypotension and sepsis. Levels are improving. HYPERKALEMIA-resolved -Reassess potassium in a.m. DELIRIUM-secondary to critical illness and lack of sleep. Much improved. -Melatonin 9 mg p.o. nightly Maintenance issues -Nutrition: health heart diet -Franz catheter not indicated at this time -DVT: Apixaban -GI; PPI Disposition: I anticipate discharge to a senior care facility for subacute rehab Ran Willard MD
[2020-05-14] MEDS: oxyCODONE 5 MG Tab PO PRN (08:11)
[2020-05-14] MEDS: Brimonidine 0.2% Ophth Soln 5 ML Bottle EYEBOTH SCH ×2 (09:25→21:35)
[2020-05-14] MEDS: Lactobacillus Rhamnosus GG (Probiotic) Cap PO SCH ×2 (09:26→21:33)
[2020-05-14] MEDS: Amiodarone 200 MG Tab PO SCH (09:26)
[2020-05-14] MEDS: Acyclovir 200 MG Cap PO SCH (09:27)
[2020-05-14] MEDS: atorvaSTATin 20 MG Tab PO SCH (09:27)
[2020-05-14] MEDS: Apixaban 2.5 MG Tab PO SCH ×2 (09:27→21:34)
[2020-05-14] MEDS: Metoprolol Tartrate 50 MG Tab PO SCH ×2 (09:28→21:34)
[2020-05-14] MEDS: TIMOLOL MALEATE 0.5% EYEBOTH SCH ×2 (09:29→21:38)
[2020-05-14] MEDS: Dorzolamide 2% Ophth Soln 10 ML Bottle EYEBOTH SCH ×2 (09:39→21:32)
[2020-05-14] MEDS ORDERED: Sodium Chloride 0.9% 1,000 ML IV SCH (13:30)
[2020-05-14] MEDS: Melatonin 3 MG Tab PO SCH (21:35)
[2020-05-14] MEDS: BIMATOPROST EYEBOTH SCH (21:41)
[2020-05-15] MEDS: Acyclovir 200 MG Cap PO SCH (09:34)
[2020-05-15] MEDS: Lactobacillus Rhamnosus GG (Probiotic) Cap PO SCH ×2 (09:34→20:10)
[2020-05-15] MEDS: Amiodarone 200 MG Tab PO SCH (09:34)
[2020-05-15] MEDS: Apixaban 2.5 MG Tab PO SCH ×2 (09:34→22:44)
[2020-05-15] MEDS: atorvaSTATin 20 MG Tab PO SCH (09:34)
[2020-05-15] MEDS: Metoprolol Tartrate 50 MG Tab PO SCH ×2 (09:34→20:10)
[2020-05-15] MEDS: Dorzolamide 2% Ophth Soln 10 ML Bottle EYEBOTH SCH ×2 (09:35→20:11)
[2020-05-15] MEDS: Brimonidine 0.2% Ophth Soln 5 ML Bottle EYEBOTH SCH ×2 (09:36→20:11)
[2020-05-15] MEDS: TIMOLOL MALEATE 0.5% EYEBOTH SCH ×2 (09:36→20:10)
[2020-05-15] MEDS: Levofloxacin/Dextrose 5%-Water 500 MG in Premix Bag 1 BAG IV SCH (09:39)
--- NOTE | 2020-05-15 12:15 | PCM.PN ---
- General Info Date of Service: 05/15/20 Subjective Update: No acute events overnight. The patient was transferred out of the intensive care unit to second floor. Slept better last night but still having some nightmares. Still quite weak but moving a little better. He does continue to require assistance to get out of bed and out of the chair. He did not have any fevers. Appetite is getting better. White blood cell count is a little better. Kidney function is a little better. Functional Status: Reports: Pain Controlled, Tolerating Diet - Review of Systems General: Reports: Weakness. Denies: Fever - Patient Data Vitals - Most Recent: Last Vital Signs Temp 36.1 C 05/15/20 10:53 Pulse 63 05/15/20 10:53 Resp 18 05/15/20 10:53 BP 107/55 L 05/15/20 10:53 Pulse Ox 97 05/15/20 10:53 Weight - Most Recent: 83.007 kg I&O - Last 24 Hours: Intake & Output 05/14/20 05/15/20 05/15/20 22:59 06:59 14:59 Intake Total 1490 Output Total 425 450 Balance 1065 -450 Lab Results Last 24 Hours: Laboratory Results - last 24 hr 05/15/20 05/15/20 Range/Units 05:00 05:00 WBC 14.4 H (4.5-11.0) K/uL RBC 3.57 L (4.30-5.90) M/uL Hgb 10.9 L (12.0-15.0) g/dL Hct 33.5 L (40.0-54.0) % MCV 94 (80-98) fL MCH 31 (27-31) pg MCHC 33 (32-36) % Plt Count 123 L (150-400) K/uL Sodium 149 H (140-148) mmol/L Potassium 4.1 (3.6-5.2) mmol/L Chloride 117 H (100-108) mmol/L Carbon Dioxide 21 (21-32) mmol/L Anion Gap 15.1 H (5.0-14.0) mmol/L BUN 49 H (7-18) mg/dL Creatinine 1.6 H (0.8-1.3) mg/dL Est Cr Clr Drug Dosing 36.12 mL/min Estimated GFR (MDRD) 41 L (>60) Glucose 100 (74-106) mg/dL Calcium 8.1 L (8.5-10.1) mg/dL Med Orders - Current: Current Medications Acetaminophen (Tylenol) 650 mg PO Q4H PRN PRN Reason: analgesia/fever Last Admin: 05/09/20 14:57 Dose: 650 mg Documented by: Acyclovir (Zovirax) 800 mg PO DAILY [facility] Last Admin: 05/15/20 09:34 Dose: 800 mg Documented by: Amiodarone HCl (Cordarone) 200 mg PO DAILY [facility] Apixaban (Eliquis) 2.5 mg PO BID [facility] Last Admin: 05/15/20 09:34 Dose: 2.5 mg Documented by: Atorvastatin Calcium (Lipitor) 20 mg PO DAILY [facility] Last Admin: 05/15/20 09:34 Dose: 20 mg Documented by: Brimonidine Tartrate (Alphagan 0.2% Ophth Soln) 0 ml EYEBOTH BID [facility] Last Admin: 05/15/20 09:36 Dose: 1 drop Documented by: Docusate Sodium (Colace) 100 mg PO DAILY PRN PRN Reason: Constipation Dorzolamide HCl (Trusopt 2% Ophth Soln) 0 ml EYEBOTH BID [facility] Last Admin: 05/15/20 09:35 Dose: 1 drop Documented by: Hydromorphone HCl (Dilaudid) 0.5 mg IVPUSH Q2H PRN PRN Reason: Pain (severe 7-10) Last Admin: 05/10/20 12:06 Dose: 0.5 mg Documented by: Levofloxacin/Dextrose 500 mg/ (Premix) 100 mls @ 100 mls/hr IV Q48H [facility] Last Admin: 05/15/20 09:39 Dose: 100 mls/hr Documented by: Lactobacillus Rhamnosus (Culturelle) 1 cap PO BID [facility] Last Admin: 05/15/20 09:34 Dose: 1 cap Documented by: Melatonin (Melatonin) 9 mg PO BEDTIME [facility] Last Admin: 05/14/20 21:35 Dose: 9 mg Documented by: Metoprolol Tartrate (Lopressor) 50 mg PO BID [facility] Last Admin: 05/15/20 09:34 Dose: 50 mg Documented by: Bimatoprost (Lumigan 0.01% Ophth Soln) Pom 0 drop EYEBOTH BEDTIME [facility] Last Admin: 05/14/20 21:41 Dose: 2 drop Documented by: Ondansetron HCl (Zofran) 4 mg IVPUSH Q4H PRN PRN Reason: Nausea/Vomiting Oxycodone HCl (Oxycodone) 10 mg PO Q4H PRN PRN Reason: Pain (moderate 4-6) Last Admin: 05/14/20 08:11 Dose: 10 mg Documented by: Sodium Chloride (Saline Flush) 10 ml FLUSH ASDIRECTED PRN PRN Reason: Keep Vein Open Last Admin: 05/08/20 05:17 Dose: 10 ml Documented by: Timolol Maleate (Timoptic 0.5% Ophth Soln) 0 ml EYEBOTH BID [facility] Last Admin: 05/15/20 09:36 Dose: 1 drop Documented by: Discontinued Medications Acetaminophen (Tylenol) 650 mg PO NOW ONE Stop: 05/08/20 02:25 Last Admin: 05/08/20 02:33 Dose: 650 mg Documented by: Amiodarone HCl (Cordarone) 400 mg PO DAILY [facility] Last Admin: 05/15/20 09:34 Dose: 400 mg Documented by: Amlodipine Besylate (Norvasc) 5 mg PO DAILY [facility] Last Admin: 05/08/20 10:23 Dose: Not Given Documented by: Digoxin (Lanoxin) 250 mcg IVPUSH ONETIME ONE Stop: 05/08/20 13:01 Last Admin: 05/08/20 13:18 Dose: 250 mcg Documented by: Digoxin (Lanoxin) 250 mcg IVPUSH ONETIME ONE Stop: 05/08/20 15:31 Last Admin: 05/08/20 15:33 Dose: 250 mcg Documented by: Digoxin (Lanoxin) 250 mcg IVPUSH ONETIME ONE Stop: 05/10/20 15:31 Last Admin: 05/10/20 15:43 Dose: 250 mcg Documented by: Diltiazem HCl (Diltiazem) 10 mg IVPUSH ONETIME ONE Stop: 05/08/20 21:37 Last Admin: 05/08/20 22:01 Dose: 10 mg Documented by: Fluorometholone (Flarex 0.1% Ophth Susp) 0 ml EYERT Q48H [facility] Last Admin: 05/10/20 09:39 Dose: 1 drop Documented by: Haloperidol Lactate (Haldol) 1 mg IVPUSH Q2H PRN PRN Reason: Agitation Lactated Ringer's (Ringers, Lactated) 1,000 mls @ 999 mls/hr IV ASDIRECTED ANDREA Last Infusion: 05/08/20 04:00 Dose: Infused Documented by: Ceftriaxone Sodium 2 gm/ (Sodium Chloride) 50 mls @ 100 mls/hr IV ONETIME ONE Stop: 05/08/20 05:16 Last Admin: 05/08/20 05:16 Dose: 100 mls/hr Documented by: Lactated Ringer's (Ringers, Lactated) 1,000 mls @ 500 mls/hr IV ASDIRECTED ANDREA Stop: 05/08/20 05:59 Last Admin: 05/08/20 04:00 Dose: 500 mls/hr Documented by: Meropenem 1 gm/ Sodium (Chloride) 100 mls @ 200 mls/hr IV Q8H ANDREA Last Admin: 05/10/20 08:06 Dose: 200 mls/hr Documented by: Sodium Chloride (Normal Saline) 1,000 mls @ 125 mls/hr IV ASDIRECTED ANDREA Last Admin: 05/09/20 06:18 Dose: 125 mls/hr Documented by: Lactated Ringer's (Ringers, Lactated) 1,000 mls @ 500 mls/hr IV ASDIRECTED ANDREA Stop: 05/08/20 16:31 Last Admin: 05/08/20 14:52 Dose: 500 mls/hr Documented by: Diltiazem HCl 100 mg/ Sodium (Chloride) 100 mls @ 5 mls/hr IV TITRATE [facility]; Protocol Last Titration: 05/08/20 22:20 Dose: 0 mg/hr, 0 mls/hr Documented by: Levofloxacin/Dextrose 750 mg/ (Premix) 150 mls @ 100 mls/hr IV ONETIME ONE Stop: 05/09/20 11:29 Last Admin: 05/09/20 10:32 Dose: 100 mls/hr Documented by: Vancomycin HCl 1.2 gm/ Sodium (Chloride) 250 mls @ 250 mls/hr IV ONETIME ONE Stop: 05/09/20 12:59 Last Admin: 05/09/20 12:30 Dose: 250 mls/hr Documented by: Amiodarone HCl 450 mg/ (Dextrose/Water) 250 mls @ 33.33 mls/hr IV ASDIRECTED ANDREA; Protocol Last Titration: 05/09/20 18:26 Dose: 0.49 mg/min, 16.6 mls/hr Documented by: Norepinephrine Bitartrate 4 mg (/ Dextrose/Water) 250 mls @ 7.5 mls/hr IV TITRATE ANDREA; Protocol Last Titration: 05/09/20 19:39 Dose: 2 mcg/min, 7.5 mls/hr Documented by: Amiodarone HCl 150 mg/ (Dextrose/Water) 103 mls @ 618 mls/hr IV ONETIME ONE Stop: 05/09/20 10:39 Last Admin: 05/09/20 10:30 Dose: 618 mls/hr Documented by: Sodium Chloride (Normal Saline) 1,000 mls @ 50 mls/hr IV ASDIRECTED ANDREA Last Admin: 05/09/20 17:57 Dose: 50 mls/hr Documented by: Magnesium Sulfate 2 gm/ Premix 50 mls @ 25 mls/hr IV Q6H ANDREA Stop: 05/10/20 23:59 Last Admin: 05/10/20 22:27 Dose: 25 mls/hr Documented by: Meropenem 500 mg/ Sodium (Chloride) 50 mls @ 100 mls/hr IV Q12H ANDREA Last Admin: 05/12/20 08:08 Dose: 100 mls/hr Documented by: Sodium Chloride (Normal Saline) 1,000 mls @ 100 mls/hr IV ASDIRECTED ANDREA Last Admin: 05/13/20 09:51 Dose: 100 mls/hr Documented by: Sodium Chloride (Normal Saline) 1,000 mls @ 250 mls/hr IV ASDIRECTED ANDREA Stop: 05/14/20 17:31 Last Admin: 05/14/20 13:54 Dose: 250 mls/hr Documented by: Ibuprofen (Motrin) 400 mg PO Q6H PRN PRN Reason: Fever Lidocaine HCl (Xylocaine 2% Jelly) 10 ml MUCMEM ONETIME ONE Stop: 05/12/20 17:48 Last Admin: 05/12/20 18:21 Dose: 10 ml Documented by: Lorazepam (Ativan) 0.5 mg IVPUSH Q2H PRN PRN Reason: Anxiety Last Admin: 05/10/20 22:35 Dose: 0.5 mg Documented by: Melatonin (Melatonin) 9 mg PO BEDTIME [facility] Metoprolol Tartrate (Lopressor) 50 mg PO BID [facility] Last Admin: 05/09/20 08:01 Dose: 50 mg Documented by: Metoprolol Tartrate (Lopressor) 25 mg PO BID [facility] Last Admin: 05/09/20 21:37 Dose: 25 mg Documented by: Ondansetron HCl (Zofran) 4 mg IVPUSH ONETIME ONE Stop: 05/08/20 02:25 Last Admin: 05/08/20 02:33 Dose: 4 mg Documented by: Oxycodone HCl (Oxycodone) 5 mg PO Q4H PRN PRN Reason: Pain Last Admin: 05/10/20 05:10 Dose: 5 mg Documented by: Prednisolone Acetate (Pred Forte 1% Ophth Susp) 0 ml EYERT DAILY [facility] Sodium Polystyrene Sulfonate (Kayexalate) 30 gm PO ONETIME ONE Stop: 05/09/20 10:16 Last Admin: 05/09/20 11:02 Dose: 30 gm Documented by: - Exam Quality Assessment: No: Supplemental Oxygen General: Alert, Oriented, Cooperative, No Acute Distress Lungs: Normal Respiratory Effort Cardiovascular: Regular Rate, Irregular Rhythm GI/Abdominal Exam: Soft, No Distention Extremities: No Pedal Edema. No: Increased Warmth Skin: Warm, Dry Psy/Mental Status: Alert, Normal Affect Sepsis Event Note - Evaluation Sepsis Screening Result: No Definite Risk - Focused Exam Vital Signs: Vital Signs Temp Pulse Pulse Resp BP BP BP 05/15/20 10:53 36.1 C 63 18 107/55 L 05/15/20 09:34 79 126/62 05/15/20 07:00 36.2 C 79 16 126/62 05/15/20 04:45 36.2 C 71 20 132/61 05/15/20 01:44 36.6 C 72 18 127/67 Pulse Ox 05/15/20 10:53 97 05/15/20 09:34 05/15/20 07:00 97 05/15/20 04:45 97 05/15/20 01:44 98 Date Exam was Performed: 05/15/20 Time Exam was Performed: 15:02 - Problem List Review Problem List Initiated/Reviewed/Updated: Yes - My Orders Last 24 Hours: My Active Orders 05/16/20 05:00 BASIC METABOLIC PANEL,BMP [CHEM] Timed CBC W/O DIFF,HEMOGRAM [HEME] Timed (1) 05/16/20 09:00 Amiodarone [Cordarone] 200 mg PO DAILY - Plan Plan:: ASSESSMENT / PLAN URINARY TRACT INFECTION WITH SEPTIC SHOCK-Blood cultures and urine culture growing Klebsiella which is found to be pansensitive. Septic shock has resolved. White blood cell count and creatinine have improved from yesterday. -Saline lock IV -IV Antibiotic levofloxacin, transition to oral after today's dose -physical therapy ATRIAL FIBRILLATION WITH RAPID VENTRICULAR RESPONSE-remains in atrial fibrillation but rate control has been excellent. -Continue oral metoprolol -Decrease amiodarone to 200 mg p.o. daily -Continue anticoagulation HYPOXIC RESPIRATORY FAILURE-resolved -Supplemental oxygen as needed ACUTE KIDNEY INJURY-secondary to sepsis, hypotension, and intravascular volume depletion. Creatinine has continued to improve and is nearing baseline. -Closely monitor urine output and renal function TRANSAMINITIS-secondary to hypotension and sepsis. Levels have been improving. HYPERKALEMIA-resolved -Reassess potassium in a.m. DELIRIUM-secondary to critical illness and lack of sleep. Much improved. -Melatonin 9 mg p.o. nightly Maintenance issues -Nutrition: health heart diet -Franz catheter not indicated at this time -DVT: Apixaban -GI; PPI Disposition: I anticipate discharge to a [facility]pc facility for subacute rehab, hopefully tomorrow if stable overnight Ran Willard MD
[2020-05-15] MEDS: Melatonin 3 MG Tab PO SCH (20:10)
[2020-05-15] MEDS: BIMATOPROST EYEBOTH SCH (20:11)
[2020-05-16] MEDS ORDERED: Amiodarone 200 MG Tab PO SCH (09:00)
[2020-05-16] MEDS: Brimonidine 0.2% Ophth Soln 5 ML Bottle EYEBOTH SCH (09:39)
[2020-05-16] MEDS: Acyclovir 200 MG Cap PO SCH (09:41)
[2020-05-16] MEDS: atorvaSTATin 20 MG Tab PO SCH (09:41)
[2020-05-16] MEDS: Lactobacillus Rhamnosus GG (Probiotic) Cap PO SCH (09:41)
[2020-05-16] MEDS: Apixaban 2.5 MG Tab PO SCH (09:42)
[2020-05-16] MEDS: Metoprolol Tartrate 50 MG Tab PO SCH (09:42)
[2020-05-16] MEDS: TIMOLOL MALEATE 0.5% EYEBOTH SCH (09:44)
[2020-05-16] MEDS: Dorzolamide 2% Ophth Soln 10 ML Bottle EYEBOTH SCH (09:56)
--- NOTE | 2020-05-16 11:01 | PCM.DCSUM1 ---
Discharge Summary - Hospital Course Brief History: 84-year-old male with history of chronic back pain, BPH and chronic atrial fibrillation who presented with nausea, vomiting and diarrhea. He was admitted for management of a complicated urinary tract infection with sepsis. Diagnosis: Stroke: No - Discharge Data Discharge Date: 05/16/20 Discharge Disposition: DC/Tfer to SNF 03 Condition: Good - Referral to Home Health Primary Care Physician: PCP None - Discharge Diagnosis/Problem(s) (1) Complicated urinary tract infection SNOMED Code(s): 63539244 ICD Code: N39.0 - URINARY TRACT INFECTION, SITE NOT SPECIFIED Status: Acute Current Visit: Yes (2) Septic shock due to Klebsiella pneumoniae SNOMED Code(s): 38682466 ICD Code: A41.4 - SEPSIS DUE TO ANAEROBES; R65.21 - SEVERE SEPSIS WITH SEPTIC SHOCK Status: Acute Current Visit: Yes (3) Acute kidney injury SNOMED Code(s): 07155775, 35888825 ICD Code: N17.9 - ACUTE KIDNEY FAILURE, UNSPECIFIED Status: Acute Current Visit: Yes (4) Hyperkalemia SNOMED Code(s): 92094891 ICD Code: E87.5 - HYPERKALEMIA Status: Acute Current Visit: Yes (5) Acute respiratory failure with hypoxia SNOMED Code(s): 60326300, 652532120 ICD Code: J96.01 - ACUTE RESPIRATORY FAILURE WITH HYPOXIA Status: Acute Current Visit: Yes (6) Atrial fibrillation with rapid ventricular response SNOMED Code(s): 441977599962606 ICD Code: I48.91 - UNSPECIFIED ATRIAL FIBRILLATION Status: Acute Current Visit: Yes (7) Acute hypoactive delirium due to another medical condition SNOMED Code(s): 4364836, 852677084, 284740700 ICD Code: F05 - DELIRIUM DUE TO KNOWN PHYSIOLOGICAL CONDITION Status: Acute Current Visit: Yes - Patient Summary/Data Consults: Consultations 05/13/20 10:25 PT Evaluation and Treatment [CONS] Routine Please Evaluate and Treat. PT Reason for Consult: Strengthening This query below is only for informational purposes and is not editable. Admission Diagnosis/Problem: Sepsis Hospital Course: Mahendra presented to the emergency room with weakness. Work-up in the emergency room was suggestive of a urinary tract infection with sepsis. Initially his white blood cell count was normal. His kidney function was elevated from baseline with a creatinine of 2.6. Urinalysis was suggestive of infection. He was mildly tachycardic in the emergency room but this did improve with IV fluids. He was admitted to the floor for management of the urinary tract infection and sepsis. Unfortunately after admission to the hospital his condition declined. He had increasing heart rates as well as a decreasing level of consciousness. His blood pressures were trending down. He was transferred to the intensive care unit for management of his rapid atrial fibrillation and worsening sepsis picture. Antibiotic coverage was expanded. Because of his low blood pressures we were not able to use diltiazem to manage his atrial fibrillation. He did not respond well to digoxin. He was started on amiodarone which did make some improvements in his heart rates. His potassium was elev ated and he did require Kayexalate. By the morning after admission his white blood cell count has jumped up to more than 30,000. His blood pressures have been trending down and he is now requiring norepinephrine to maintain adequate blood pressure. His kidney function has declined further with a creatinine greater than 3. He has now developed hypoxic respiratory failure and did require supplemental oxygen and given noninvasive ventilation for a while. Blood cultures are positive at this point for a gram-negative [place]. Over the next couple of days his condition remained fairly tenuous. We did achieve better rate control with the amiodarone. Kidney function did finally stabilized after a couple of days. His elevated transaminases because of the shock liver stabilized. Respiratory status did slowly seem to be coming around and was no longer requiring noninvasive ventilation. His cultures were positive for Klebsiella and he was transitioned to only monotherapy with levofloxacin. Eventually his kidney function did start to improve. His white blood cell count was trending down. His strength and appetite started to improve. Mental status improved. We are able to transition him out of the intensive care unit up to second floor. He has shown further improvement there. His white blood cell count is nearly down to the normal range. Kidney function is nearly back to normal. Mental status seems to be back to baseline. He is still quite weak but otherwise doing well. At this point I think he is safe for discharge from the hospital. He is very weak and would benefit from admission to the residential for subacute rehab. His septic shock has resolved and laboratory studies are all trending in the right direction but are not quite back to normal at the time of discharge. He will need 2 more doses of antibiotic therapy to complete his treatment for a complicated urinary tract infection with significant bacteremia and septic shock. His heart rate has been well controlled with the amiodarone and I suspect as he continues to improve following these acute infectious issues that we should be able to wean him off and the plan is for him to continue this for 2 weeks after hospital discharge. - Patient Instructions Diet: Regular Diet as Tolerated Activity: As Tolerated Showering/Bathing: May Shower Notify Provider of: Fever, Increased Pain Other/Special Instructions: 1. You were in the hospital for management of a comp licated urinary tract infection complicated by septic shock. This infection was caused by Klebsiella. Your condition is improving with antibiotic therapy. I do recommend 2 additional doses of antibiotic therapy after hospital discharge. Please take levofloxacin 750 mg at 10 AM on May 17 and again at 10 AM on May 19. This will complete your antibiotic therapy. You had acute kidney injury, respiratory failure and shock liver that resulted from the severity of the infection but these conditions have all been steadily improving and are nearly back to normal or are back to normal at the time of hospital discharge. 2. Referral to physical therapy and Occupational Therapy has been placed to help with strengthening following your weakness that developed because of an acute illness. 3. Code status - FULL CODE - Discharge Plan *PRESCRIPTION DRUG MONITORING PROGRAM REVIEWED*: Not Applicable *COPY OF PRESCRIPTION DRUG MONITORING REPORT IN PATIENT FALGUNI: Not Applicable Prescriptions/Med Rec: Amiodarone [Cordarone] 200 mg PO DAILY #14 tablet Lactobacillus Rhamnosus GG [Culturelle] 1 cap PO BID #30 cap Hydrocodone/Acetaminophen [Hydrocodon-Acetaminoph 7.5-325] 1 each PO Q4H PRN #60 PRN Reason: Pain (Moderate 4-6) Levofloxacin 500 mg PO Q48H #2 tablet Melatonin 10 mg PO BEDTIME #30 tablet Acetaminophen [Tylenol] 650 mg PO Q4H PRN #200 tablet PRN Reason: Pain/Fever Home Medications: Home Meds Acyclovir 1 tab PO DAILY 05/08/20 [History] Apixaban [Eliquis] 1 tab PO BID 05/08/20 [History] Metoprolol Tartrate [Lopressor] 1 tab PO BID 05/08/20 [History] amLODIPine Besylate [Amlodipine Besylate] 1 tab PO DAILY 05/08/20 [History] atorvaSTATin [Lipitor] 1 tab PO DAILY 05/08/20 [History] Bimatoprost [LUMIGAN 0.01% Ophth Soln] 1 drop EYEBOTH BEDTIME 05/09/20 [History] Brimonidine Tartrate [Alphagan P 0.1% Ophth Soln] 1 drop EYEBOTH BID 05/10/20 [History] Dorzolamide HCl 1 drop EYEBOTH BID 05/10/20 [History] Timolol Maleate 1 drop EYEBOTH BID 05/10/20 [History] Acetaminophen [Tylenol] 650 mg PO Q4H PRN #200 tablet 05/16/20 [Rx] Amiodarone [Cordarone] 200 mg PO DAILY #14 tablet 05/16/20 [Rx] Hydrocodone/Acetaminophen [Hydrocodon-Acetaminoph 7.5-325] 1 each PO Q4H PRN #60 05/16/20 [Rx] Lactobacillus Rhamnosus GG [Culturelle] 1 cap PO BID #30 cap 05/16/20 [Rx] Levofloxacin 500 mg PO Q48H #2 tablet 05/16/20 [Rx] Melatonin 10 mg PO BEDTIME #30 tablet 05/16/20 [Rx] Oxygen Therapy Mode: Room Air Referrals: PCP,None [Primary Care Provider] - (1 week - f/u with your primary care doctor in about 1 week - f/u hospital stay for septic shock with complicated UTI) - Discharge Summary/Plan Comment DC Time >30 min.: Yes (40-new residential discharge) - Patient Data Vitals - Most Recent: Last Vital Signs Temp 36.3 C 05/16/20 10:45 Pulse 65 05/16/20 10:45 Resp 16 05/16/20 10:45 BP 124/67 05/16/20 10:45 Pulse Ox 99 05/16/20 10:45 Weight - Most Recent: 83.007 kg I&O - Last 24 hours: Intake & Output 05/15/20 05/16/20 05/16/20 22:59 06:59 14:59 Intake Total 500 240 Output Total 200 100 Balance -200 400 240 Lab Results - Last 24 hrs: Laboratory Results - last 24 hr 05/16/20 05/16/20 Range/Units 05:33 05:33 WBC 12.6 H (4.5-11.0) K/uL RBC 3.41 L (4.30-5.90) M/uL Hgb 10.3 L (12.0-15.0) g/dL Hct 32.1 L (40.0-54.0) % MCV 94 (80-98) fL MCH 30 (27-31) pg MCHC 32 (32-36) % Plt Count 159 (150-400) K/uL Sodium 153 H (140-148) mmol/L Potassium 4.1 (3.6-5.2) mmol/L Chloride 120 H (100-108) mmol/L Carbon Dioxide 23 (21-32) mmol/L Anion Gap 14.1 H (5.0-14.0) mmol/L BUN 43 H (7-18) mg/dL Creatinine 1.5 H (0.8-1.3) mg/dL Est Cr Clr Drug Dosing 38.53 mL/min Estimated GFR (MDRD) 45 L (>60) Glucose 105 (74-106) mg/dL Calcium 7.9 L (8.5-10.1) mg/dL Med Orders - Current: Current Medications Acetaminophen (Tylenol) 650 mg PO Q4H PRN PRN Reason: analgesia/fever Last Admin: 05/09/20 14:57 Dose: 650 mg Documented by: Acyclovir (Zovirax) 800 mg PO DAILY [facility] Last Admin: 05/16/20 09:41 Dose: 800 mg Documented by: Amiodarone HCl (Cordarone) 200 mg PO DAILY [facility] Last Admin: 05/16/20 09:41 Dose: 200 mg Documented by: Apixaban (Eliquis) 2.5 mg PO BID [facility] Last Admin: 05/16/20 09:42 Dose: 2.5 mg Documented by: Atorvastatin Calcium (Lipitor) 20 mg PO DAILY [facility] Last Admin: 05/16/20 09:41 Dose: 20 mg Documented by: Brimonidine Tartrate (Alphagan 0.2% Ophth Soln) 0 ml EYEBOTH BID [facility] Last Admin: 05/16/20 09:39 Dose: 1 drop Documented by: Docusate Sodium (Colace) 100 mg PO DAILY PRN PRN Reason: Constipation Dorzolamide HCl (Trusopt 2% Ophth Soln) 0 ml EYEBOTH BID [facility] Last Admin: 05/16/20 09:56 Dose: 1 drop Documented by: Hydromorphone HCl (Dilaudid) 0.5 mg IVPUSH Q2H PRN PRN Reason: Pain (severe 7-10) Last Admin: 05/10/20 12:06 Dose: 0.5 mg Documented by: Levofloxacin/Dextrose 500 mg/ (Premix) 100 mls @ 100 mls/hr IV Q48H [facility] Last Admin: 05/15/20 09:39 Dose: 100 mls/hr Documented by: Lactobacillus Rhamnosus (Culturelle) 1 cap PO BID [facility] Last Admin: 05/16/20 09:41 Dose: 1 cap Documented by: Melatonin (Melatonin) 9 mg PO BEDTIME [facility] Last Admin: 05/15/20 20:10 Dose: 9 mg Documented by: Metoprolol Tartrate (Lopressor) 50 mg PO BID [facility] Last Admin: 05/16/20 09:42 Dose: 50 mg Documented by: Bimatoprost (Lumigan 0.01% Ophth Soln) Pom 0 drop EYEBOTH BEDTIME [facility] Last Admin: 05/15/20 20:11 Dose: 2 drop Documented by: Ondansetron HCl (Zofran) 4 mg IVPUSH Q4H PRN PRN Reason: Nausea/Vomiting Oxycodone HCl (Oxycodone) 10 mg PO Q4H PRN PRN Reason: Pain (moderate 4-6) Last Admin: 05/14/20 08:11 Dose: 10 mg Documented by: Sodium Chloride (Saline Flush) 10 ml FLUSH ASDIRECTED PRN PRN Reason: Keep Vein Open Last Admin: 05/08/20 05:17 Dose: 10 ml Documented by: Timolol Maleate (Timoptic 0.5% Ophth Soln) 0 ml EYEBOTH BID [facility] Last Admin: 05/16/20 09:44 Dose: 1 drop Documented by: Discontinued Medications Acetaminophen (Tylenol) 650 mg PO NOW ONE Stop: 05/08/20 02:25 Last Admin: 05/08/20 02:33 Dose: 650 mg Documented by: Amiodarone HCl (Cordarone) 400 mg PO DAILY [facility] Last Admin: 05/15/20 09:34 Dose: 400 mg Documented by: Amlodipine Besylate (Norvasc) 5 mg PO DAILY [facility] Last Admin: 06/10/20 10:23 Dose: Not Given Documented by: Digoxin (Lanoxin) 250 mcg IVPUSH ONETIME ONE Stop: 05/08/20 13:01 Last Admin: 05/08/20 13:18 Dose: 250 mcg Documented by: Digoxin (Lanoxin) 250 mcg IVPUSH ONETIME ONE Stop: 05/08/20 15:31 Last Admin: 05/08/20 15:33 Dose: 250 mcg Documented by: Digoxin (Lanoxin) 250 mcg IVPUSH ONETIME ONE Stop: 05/10/20 15:31 Last Admin: 05/10/20 15:43 Dose: 250 mcg Documented by: Diltiazem HCl (Diltiazem) 10 mg IVPUSH ONETIME ONE Stop: 05/08/20 21:37 Last Admin: 05/08/20 22:01 Dose: 10 mg Documented by: Fluorometholone (Flarex 0.1% Ophth Susp) 0 ml EYERT Q48H [facility] Last Admin: 05/10/20 09:39 Dose: 1 drop Documented by: Haloperidol Lactate (Haldol) 1 mg IVPUSH Q2H PRN PRN Reason: Agitation Lactated Ringer's (Ringers, Lactated) 1,000 mls @ 999 mls/hr IV ASDIRECTED [facility] Last Infusion: 05/08/20 04:00 Dose: Infused Documented by: Ceftriaxone Sodium 2 gm/ (Sodium Chloride) 50 mls @ 100 mls/hr IV ONETIME ONE Stop: 05/08/20 05:16 Last Admin: 05/08/20 05:16 Dose: 100 mls/hr Documented by: Lactated Ringer's (Ringers, Lactated) 1,000 mls @ 500 mls/hr IV ASDIRECTED [facility] Stop: 05/08/20 05:59 Last Admin: 05/08/20 04:00 Dose: 500 mls/hr Documented by: Meropenem 1 gm/ Sodium (Chloride) 100 mls @ 200 mls/hr IV Q8H [facility] Last Admin: 05/10/20 08:06 Dose: 200 mls/hr Documented by: Sodium Chloride (Normal Saline) 1,000 mls @ 125 mls/hr IV ASDIRECTED [facility] Last Admin: 05/09/20 06:18 Dose: 125 mls/hr Documented by: Lactated Ringer's (Ringers, Lactated) 1,000 mls @ 500 mls/hr IV ASDIRECTED [facility] Stop: 05/08/20 16:31 Last Admin: 05/08/20 14:52 Dose: 500 mls/hr Documented by: Diltiazem HCl 100 mg/ Sodium (Chloride) 100 mls @ 5 mls/hr IV TITRATE [facility]; Protocol Last Titration: 05/08/20 22:20 Dose: 0 mg/hr, 0 mls/hr Documented by: Levofloxacin/Dextrose 750 mg/ (Premix) 150 mls @ 100 mls/hr IV ONETIME ONE Stop: 05/09/20 11:29 Last Admin: 05/09/20 10:32 Dose: 100 mls/hr Documented by: Vancomycin HCl 1.2 gm/ Sodium (Chloride) 250 mls @ 250 mls/hr IV ONETIME ONE Stop: 05/09/20 12:59 Last Admin: 05/09/20 12:30 Dose: 250 mls/hr Documented by: Amiodarone HCl 450 mg/ (Dextrose/Water) 250 mls @ 33.33 mls/hr IV ASDIRECTED [facility]; Protocol Last Titration: 05/09/20 18:26 Dose: 0.49 mg/min, 16.6 mls/hr Documented by: Norepinephrine Bitartrate 4 mg (/ Dextrose/Water) 250 mls @ 7.5 mls/hr IV TITRATE [facility]; Protocol Last Titration: 05/09/20 19:39 Dose: 2 mcg/min, 7.5 mls/hr Documented by: Amiodarone HCl 150 mg/ (Dextrose/Water) 103 mls @ 618 mls/hr IV ONETIME ONE Stop: 05/09/20 10:39 Last Admin: 05/09/20 10:30 Dose: 618 mls/hr Documented by: Sodium Chloride (Normal Saline) 1,000 mls @ 50 mls/hr IV ASDIRECTED [facility] Last Admin: 05/09/20 17:57 Dose: 50 mls/hr Documented by: Magnesium Sulfate 2 gm/ Premix 50 mls @ 25 mls/hr IV Q6H [facility] Stop: 05/10/20 23:59 Last Admin: 05/10/20 22:27 Dose: 25 mls/hr Documented by: Meropenem 500 mg/ Sodium (Chloride) 50 mls @ 100 mls/hr IV Q12H [facility] Last Admin: 05/12/20 08:08 Dose: 100 mls/hr Documented by: Sodium Chloride (Normal Saline) 1,000 mls @ 100 mls/hr IV ASDIRECTED [facility] Last Admin: 05/13/20 09:51 Dose: 100 mls/hr Documented by: Sodium Chloride (Normal Saline) 1,000 mls @ 250 mls/hr IV ASDIRECTED [facility] Stop: 05/14/20 17:31 Last Admin: 05/14/20 13:54 Dose: 250 mls/hr Documented by: Ibuprofen (Motrin) 400 mg PO Q6H PRN PRN Reason: Fever Lidocaine HCl (Xylocaine 2% Jelly) 10 ml MUCMEM ONETIME ONE Stop: 05/12/20 17:48 Last Admin: 05/12/20 18:21 Dose: 10 ml Documented by: Lorazepam (Ativan) 0.5 mg IVPUSH Q2H PRN PRN Reason: Anxiety Last Admin: 05/10/20 22:35 Dose: 0.5 mg Documented by: Melatonin (Melatonin) 9 mg PO BEDTIME [facility] Metoprolol Tartrate (Lopressor) 50 mg PO BID [facility] Last Admin: 05/09/20 08:01 Dose: 50 mg Documented by: Metoprolol Tartrate (Lopressor) 25 mg PO BID [facility] Last Admin: 05/09/20 21:37 Dose: 25 mg Documented by: Ondansetron HCl (Zofran) 4 mg IVPUSH ONETIME ONE Stop: 05/08/20 02:25 Last Admin: 05/08/20 02:33 Dose: 4 mg Documented by: Oxycodone HCl (Oxycodone) 5 mg PO Q4H PRN PRN Reason: Pain Last Admin: 05/10/20 05:10 Dose: 5 mg Documented by: Prednisolone Acetate (Pred Forte 1% Ophth Susp) 0 ml EYERT DAILY [facility] Sodium Polystyrene Sulfonate (Kayexalate) 30 gm PO ONETIME ONE Stop: 05/09/20 10:16 Last Admin: 05/09/20 11:02 Dose: 30 gm Documented by:
== END 2020-05-16 12:30 | DRG 871 ==
LOC: JP.ED 02:08 → JP.MS 05:31 → JP.ICU 12:06 → JP.MS 05-14 19:11
PROVIDERS: ADMIT Hospitalist; ATTEND Internal Medicine
DX: A41.9 Sepsis, unspecified organism (principal); R65.20 Severe sepsis without septic shock; A41.4 Sepsis due to anaerobes; H54.7 Unspecified visual loss; H35.30 Unspecified macular degeneration; R65.21 Severe sepsis with septic shock; I10 Essential (primary) hypertension; J96.01 Acute respiratory failure with hypoxia; Z98.49 Cataract extraction status, unspecified eye; Z98.84 Bariatric surgery status; Z95.828 Presence of other vascular implants and grafts; N39.0 Urinary tract infection, site not specified; Z79.01 Long term (current) use of anticoagulants; N17.9 Acute kidney failure, unspecified; F05 Delirium due to known physiological condition; E87.5 Hyperkalemia; I48.91 Unspecified atrial fibrillation; K21.9 Gastro-esophageal reflux disease without esophagitis; Z88.8 Allergy status to other drugs, medicaments and biological substances; Z79.899 Other long term (current) drug therapy
CPT/HCPCS: 36415; 71045 ×2; 80053; 81001; 83605; 83690; 84145; 84484; 85025; 86140; 87040 ×2; 87077; 87086; 87088; 87186 ×2; 96361; 96374; 96375; 99285 ×2; A9270; J0696; J2405; J7050; J7120 ×3; 51702; 51798; 80048; 80162; 83735; 85027; 94660; 97110-GP; 97162-GP; 97530-GP; J0282; J1160; J1170; J1956; J2060; J2185; J3370; J3475; J3490; J7030; J7060

== ENCOUNTER 2022-02-02 19:35 | Emergency (ER) | payer MEDICARE ==
[2022-02-02] MEDS ORDERED: Sodium Chloride 0.9% 10 ML Syringe FLUSH PRN (20:05)
[2022-02-02] MEDS ORDERED: Ibuprofen 400 MG Tab PO ONE (20:40)
[2022-02-02] MEDS ORDERED: cefTRIAXone 1 GM in Sodium Chloride 0.9% 50 ML IV ONE (20:41)
[2022-02-02] MEDS ORDERED: Sodium Chloride 0.9% 1,000 ML IV ONE ×2 (20:46→23:51)
[2022-02-02] MEDS ORDERED: Sodium Chloride 0.9% 90 ML IV SCH (21:30)
[2022-02-02] MEDS ORDERED: Iopamidol 755 Mg/ML 100 ML Bottle IV SCH (21:30)
[2022-02-02] MEDS ORDERED: Piperacillin/Tazobactam 3.375 GM in Sodium Chloride 0.9% 50 ML IV SCH (23:30)
[2022-02-03 00:11] LABS: CORONAVIRUS COVID-19 NAA NEGATIVE (NEGATIVE)
== END 2022-02-03 01:50 ==
LOC: JP.ED 19:35
DX: K80.33 Calculus of bile duct with acute cholangitis with obstruction (principal); K80.42 Calculus of bile duct with acute cholecystitis without obstruction; K76.89 Other specified diseases of liver; Q61.3 Polycystic kidney, unspecified; I48.91 Unspecified atrial fibrillation; R63.0 Anorexia; I10 Essential (primary) hypertension; K21.9 Gastro-esophageal reflux disease without esophagitis; Z79.899 Other long term (current) drug therapy; Z88.8 Allergy status to other drugs, medicaments and biological substances; Z90.3 Acquired absence of stomach [part of]
CPT/HCPCS: 0241U; 36415; 74177; 80048; 80076; 81001; 83605; 83690; 85025; 86140; 87040; 87086; 93005; 93010; 96365; 96367; 99284; 99285-25; A9270-GY; J0696; J2543; J7030; Q9967